=== PATIENT | male | born 1955 | race Caucasian/White ===

== ENCOUNTER 2020-09-25 12:13 | Inpatient (IN) | payer MEDICARE ==
[~2020-09-25] VITALS: Ht 177.8 cm; Wt 92.1 kg
[2020-09-25] MEDS ORDERED: IV NORMAL SALINE 1000ML BAG 1,000 ML IV SCH (13:45)
[2020-09-25 13:59] LABS: BASO % 0 % (0-3); EOS % 0 % (0-3); HEMATOCRIT 35.3 % (39.0-53.0); HEMOGLOBIN 11.7 g/dL (13.0-17.5); LYMPH # 0.6 x10^3/uL (1.0-4.8); LYMPH % 4 % (24-48); MEAN CORPUSCULAR HEMOGLOBIN 28 pg (25-35); MEAN CORPUSCULAR HGB CONC 33 g/dL (31-37); MEAN CORPUSCULAR VOLUME 84 fL (79-100); MONO # 1.5 x10^3/uL (0.0-1.1); MONO % 11 % (0-9); NEUT % 85 % (31-73); PLATELET COUNT 200 x10^3/uL (140-400); RED BLOOD COUNT 4.21 x10^6/uL (4.30-5.70); RED CELL DISTRIBUTION WIDTH 14.5 % (11.5-14.5); WHITE BLOOD COUNT 14.1 x10^3/uL (4.0-11.0)
[2020-09-25 14:15] LABS: CALCIUM 8.4 mg/dL (8.5-10.1); CREATININE 1.4 mg/dL (0.7-1.3); GFR 50.5; POTASSIUM 4.4 mmol/L (3.5-5.1)
[2020-09-25 14:25] LABS: ALBUMIN/GLOBULIN RATIO 0.9 (1.0-1.7); TOTAL BILIRUBIN 0.4 mg/dL (0.2-1.0); TOTAL PROTEIN 6.2 g/dL (6.4-8.2)
[2020-09-25] MEDS ORDERED: CONTRAST GIVEN. MC PRN (14:30)
[2020-09-25] MEDS ORDERED: IOHEXOL 300 MG/ML 100ML VIAL. IV ONE (14:30)
--- NOTE | 2020-09-25 14:30 | PHYS DOC ---
General Adult EDM: Chief Complaint: URINARY RETENTION HPI: HPI: Patient is a 65 year old male who presents with states for the last week he has had this boil on his right buttock that busted open and started leaking last night. He states that his stomach feels like " knots" but is not in pain and it feels distended or pressure. He states that he also has some nausea last night he is unable to urinate. He states he had a small amount of urine out this morning. Patient states he has not been here for many years. Patient denies fever, back pain, vomiting, diarrhea, constipation, chest pain, shortness of breath, cough, blood in his urine, blood in his stool, headache, dizziness, numbness or tingling, focal weakness, body aches, chills. Patient has a history of pacemaker of which she has a grease buffer at , high cholesterol, high blood pressure, diabetes, hypokalemia. He states he is not scheduled to see his primary care Dr. Guadarrama until October but he called the office today and they stated to come into the emergency room. Patient is educated that we do not have urology here at this hospital. Patient rates his abdominal pressure type nonradiating discomfort at a 9 out of 10. (DAX SHUKLA SCREEN PRINTING PASTER) Review of Systems: Review of Systems: Constitutional: Denies fever or chills. [] Eyes: Denies change in visual acuity. [] HENT: Denies nasal congestion or sore throat. [] Respiratory: Denies cough or shortness of breath. [] Cardiovascular: Denies chest pain or edema. [] GI: + abdominal discomfort, +nausea, denies vomiting, bloody stools or diarrhea. [] : Denies dysuria. + Urinary retention [] Musculoskeletal: Denies back pain or joint pain. [] Integument: Denies rash. + Buttock abscess [] Neurologic: Denies headache, focal weakness or sensory changes. [] Endocrine: Denies polyuria or polydipsia. [] Lymphatic: Denies swollen glands. [] Psychiatric: Denies depression or anxiety. [] (DAX SHUKLA APRN) Heart Score: Risk Factors: Risk Factors: DM, Current or recent (<one month) smoker, HTN, HLP, family history of CAD, obesity. Risk Scores: Score 0 - 3: 2.5% MACE over next 6 weeks - Discharge Home Score 4 - 6: 20.3% MACE over next 6 weeks - Admit for Clinical Observation Score 7 - 10: 72.7% MACE over next 6 weeks - Early Invasive Strategies (DAX SHUKLA APRN) Current Medications: Current Medications Medications (Trade) Dose Ordered Sig/Mendez Start Time Stop Time Status Last Admin Dose Admin Sodium Chloride 1,000 ml @ 1,000 mls/hr Q1H 09/25/20 13:45 09/25/20 14:44 09/25/20 14:18 1,000 MLS/HR (DAX SHUKLA SCREEN PRINTING PASTER) Allergies: Allergies: Allergies Coded Allergies Type Severity Reaction Last Updated Verified No Known Drug Allergies 09/25/20 No (DAX SHUKLA APRN) Physical Exam: PE: Constitutional: Well developed, well nourished, no acute distress, non-toxic appearance. [] HENT: Normocephalic, atraumatic, bilateral external ears normal, oropharynx moist, no oral exudates, nose normal. [] Eyes: PERRLA, EOMI, conjunctiva normal, no discharge. [] Neck: Normal range of motion, no tenderness, supple, no stridor. [] Cardiovascular:Heart rate regular rhythm, no murmur [] Lungs & Thorax: Bilateral breath sounds clear to auscultation [] Abdomen: Bowel sounds normal, soft, distended, no tenderness, no masses, no pulsatile masses. [] Skin: Warm, dry, no erythema, no rash. Right buttock abscess [] Back: No tenderness, no CVA tenderness. [] Extremities: No tenderness, no cyanosis, no clubbing, ROM intact, no edema. [] Neurologic: Alert and oriented X 3, normal motor function, normal sensory function, no focal deficits noted. [] Psychologic: Affect normal, judgement normal, mood normal. [] (DAX SHUKLA APRN) Current Patient Data: Labs: Laboratory Tests Test 09/25/20 13:42 White Blood Count 14.1 x10^3/uL (4.0-11.0) H Red Blood Count 4.21 x10^6/uL (4.30-5.70) L Hemoglobin 11.7 g/dL (13.0-17.5) L Hematocrit 35.3 % (39.0-53.0) L Mean Corpuscular Volume 84 fL (79-100) Mean Corpuscular Hemoglobin 28 pg (25-35) Mean Corpuscular Hemoglobin Concent 33 g/dL (31-37) Red Cell Distribution Width 14.5 % (11.5-14.5) Platelet Count 200 x10^3/uL (140-400) Neutrophils (%) (Auto) 85 % (31-73) H Lymphocytes (%) (Auto) 4 % (24-48) L Monocytes (%) (Auto) 11 % (0-9) H Eosinophils (%) (Auto) 0 % (0-3) Basophils (%) (Auto) 0 % (0-3) Neutrophils # (Auto) 12.0 x10^3/uL (1.8-7.7) H Lymphocytes # (Auto) 0.6 x10^3/uL (1.0-4.8) L Monocytes # (Auto) 1.5 x10^3/uL (0.0-1.1) H Eosinophils # (Auto) 0.0 x10^3/uL (0.0-0.7) Basophils # (Auto) 0.0 x10^3/uL (0.0-0.2) Platelet Estimate Pending Sodium Level 136 mmol/L (136-145) Potassium Level 4.4 mmol/L (3.5-5.1) Chloride Level 102 mmol/L (98-107) Carbon Dioxide Level 21 mmol/L (21-32) Anion Gap 13 (6-14) Blood Urea Nitrogen 27 mg/dL (8-26) H Creatinine 1.4 mg/dL (0.7-1.3) H Estimated GFR (Cockcroft-Gault) 50.5 BUN/Creatinine Ratio 19 (6-20) Glucose Level 260 mg/dL (70-99) H Lactic Acid Level 1.2 mmol/L (0.4-2.0) Calcium Level 8.4 mg/dL (8.5-10.1) L Total Bilirubin Pending Aspartate Amino Transferase (AST) Pending Alanine Aminotransferase (ALT) Pending Alkaline Phosphatase Pending Troponin I Quantitative < 0.017 ng/mL (0.000-0.055) Total Protein Pending Albumin Pending Albumin/Globulin Ratio Pending Laboratory Tests 09/25/20 13:42 Laboratory Tests 09/25/20 13:42 Vital Signs: Vital Signs Date Time Temp Pulse Resp B/P (MAP) Pulse Ox O2 Delivery O2 Flow Rate FiO2 09/25/20 13:16 98.3 89 22 94 98.3 (DAX SHUKLA APRN) EKG: EK read by Dr. Torres sinus rhythm and a right bundle branch block and no STEMI (DAX SHUKLA APRN) Radiology/Procedures: Radiology/Procedures: [] Impression: [facility] [address] [place] [address] IMAGING REPORT Signed PATIENT: RADHA CRAFT ACCOUNT: [id number] : 1955 LOCATION: ER AGE: 65 SEX: M EXAM STATUS: REG ER ORD. PHYSICIAN: DAX SHUKLA APRN REASON: urinary retention, nausea, abd pain PROCEDURE: CT ABD PELV W/ IV CONTRST ONLY EXAM: CT Abdomen and Pelvis with IV contrast INDICATION: Reason: urinary retention, nausea, abd pain / Spl. Instructions: OMNI 300 INJ. 60 MLS / History: TECHNIQUE: Multi-detector row CT images were acquired from the lung bases through the abdomen and pelvis with the use of IV contrast. Sagittal and coronal images were acquired from the transaxial data. All CT scans performed at this facility utilize dose optimization techniques as appropriate to the exam, including the following: Automated exposure control and adjustment of the mA and/or KV according to patient size (this includes techniques or standardized protocols for targeted exams where dose is indication/reason for exam). IV CONTRAST: Administered ORAL CONTRAST: Not administered COMPARISON: None FINDINGS: LOWER CHEST: Mild cardiomegaly. Subendomyocardial calcifications in the dilated left ventricle are indicative of old myocardial infarction with possible dilated cardiomyopathy. Axial image AICD leads. Borderline thickened distal thoracic esophageal wall. Small epiphrenic diverticulum. LIVER: Unremarkable BILIARY SYSTEM: Gallbladder is unremarkable. Bile ducts are not dilated. PANCREAS: Unremarkable SPLEEN: Unremarkable ADRENALS: There is nodular diffuse low density fullness of the left adrenal gland, primarily involving the lateral limb. The right adrenal is unremarkable. KIDNEYS & URETERS: Mild bilateral pelviectasis. No overt hydronephrosis. No radiopaque stones. BLADDER: Moderately distended. Otherwise unremarkable. REPRODUCTIVE ORGANS: Prostate measures 6.3 x 5.4 x 7.0 cm (transverse by AP by craniocaudal) GASTROINTESTINAL: Scattered colonic diverticuli. No evidence of acute diverticulitis. The stomach, small bowel, and colon are unremarkable. The appendix is normal. MESENTERY/PERITONEUM/RETROPERITONEUM: Unremarkable VASCULAR: Scattered arterial calcifications. No abdominal aortic aneurysm. LYMPH NODES: No adenopathy OSSEOUS & SOFT TISSUES: There is asymmetric left soft tissue stranding in the left gluteal subcutaneous fat. Small fat-containing umbilical hernia. IMPRESSION: 1. Urinary retention could be related to prostatomegaly. The bladder is only mildly distended. Correlate clinically and consider catheterization as clinically warranted. 2. Patient has asymmetric left perianal and subcutaneous soft tissue stranding, suspicious for acute inflammation. Correlate with clinical exam 3. Colonic diverticulosis without evidence of diverticulitis. No acute findings in the bowel on CT.. Electronically signed by: Michel Garcia MD (09/25/2020 3:36 PM) [id number] DICTATED and SIGNED BY: MICHEL GARCIA MD DATE: 09/25/20 [id number] (DAX SHUKLA APRN) Course & Med Decision Making: Course & Med Decision Making Pertinent Labs and Imaging studies reviewed. (See chart for details) See HPI. Abdomen is soft but rounded and nontender. Speaks in full clear sentences. Alert and oriented x4. Ambulatory with a steady gait. Skin pink warm and dry. Patient was unable to urinate for us when he got back into the emergency room. He was bladder scanned and had to 292 mL on his bladder. Patient is told that he needs a urinary catheter to deflate his bladder and it would help with his discomfort. Patient states he wants to hold off on that as long as possible because it is painful. Patient is educated that we need a urine specimen and it is protocol that we drained his bladder. Patient states his understanding. Patient lab work shows a BUN of 27 creatinine 1.4. States he does not know of any kidney problems. I do not have lab work to look back on from prior visit. Patient is started on antibiotics. Patient has been able to urinate a large amount without the catheterization. He is admitted to Dr. Santana. [] (DAX SHUKLA APRN) Kali Disclaimer: Kali Disclaimer: This electronic medical record was generated, in whole or in part, using a voice recognition dictation system. (DAX SHUKLA APRN) Departure Departure Impression: Primary Impression: Abscess and cellulitis of gluteal region Additional Impression: Urinary retention Disposition: ADMITTED INPT THIS HOSP Admitting Physician: MELISSA (DAX SHUKLA APRN) Condition: STABLE Referrals: MAX GUADARRAMA MD (PCP) Attending Signature Attending Signature I have reviewed the PA/CATALYTIC CASE OPERATOR's note and plan of care. I was available for consultation as needed during the patient's visit in the emergency department. I agree with the clinical impression, plan, and disposition. (PHILLIP TORRES DO) DAX SHUKLA APRN Sep 25, 2020 14:30 PHILLIP TORRES DO Sep 26, 2020 18:53
[2020-09-25 14:39] LABS: BILIRUBIN,URINE NEGATIVE (NEG); CLARITY,URINE CLEAR; COLOR,URINE YELLOW; NITRITE,URINE NEGATIVE (NEG); PH,URINE 5.5 (<5.0-8.0); PROTEIN,URINE NEGATIVE (NEG-TRACE)
[2020-09-25 14:47] LABS: BACTERIA,URINE 0 /HPF (0-FEW); HYALINE CASTS, URINE OCCASIONAL /HPF; RBC,URINE 0 /HPF (0-2); WBC,URINE 0 /HPF (0-4)
[2020-09-25] MEDS ORDERED: VANCOMYCIN PER PHARMACY MC PRN (15:00)
[2020-09-25 15:03] LABS: % BANDS 7 % (0-9); % LYMPHS 5 % (24-48); % MONOS 13 % (0-10); % SEGS 75 % (35-66); PLT ESTIMATE ADEQUATE (ADEQUATE)
--- NOTE | 2020-09-25 15:39 | RAD ---
EXAM: CT Abdomen and Pelvis with IV contrast INDICATION: Reason: urinary retention, nausea, abd pain / Spl. Instructions: OMNI 300 INJ. 60 MLS / H istory: TECHNIQUE: Multi-detector row CT images were acquired from the lung bases through the abdomen and pel vis with the use of IV contrast. Sagittal and coronal images were acquired from the transaxial data. All CT scans performed at this facility utilize dose optimization techniques as appropriate to the ex am, including the following: Automated exposure control and adjustment of the mA and/or KV according to patient size (this includes techniques or standardized protocols for targeted exams where dose is indication/reason for exam). IV CONTRAST: Administered ORAL CONTRAST: Not administered COMPARISON: None FINDINGS: LOWER CHEST: Mild cardiomegaly. Subendomyocardial calcifications in the dilated left ventricle are in dicative of old myocardial infarction with possible dilated cardiomyopathy. Axial image AICD leads. B orderline thickened distal thoracic esophageal wall. Small epiphrenic diverticulum. LIVER: Unremarkable BILIARY SYSTEM: Gallbladder is unremarkable. Bile ducts are not dilated. PANCREAS: Unremarkable SPLEEN: Unremarkable ADRENALS: There is nodular diffuse low density fullness of the left adrenal gland, primarily involvi ng the lateral limb. The right adrenal is unremarkable. KIDNEYS & URETERS: Mild bilateral pelviectasis. No overt hydronephrosis. No radiopaque stones. BLADDER: Moderately distended. Otherwise unremarkable. REPRODUCTIVE ORGANS: Prostate measures 6.3 x 5.4 x 7.0 cm (transverse by AP by craniocaudal) GASTROINTESTINAL: Scattered colonic diverticuli. No evidence of acute diverticulitis. The stomach, sm all bowel, and colon are unremarkable. The appendix is normal. MESENTERY/PERITONEUM/RETROPERITONEUM: Unremarkable VASCULAR: Scattered arterial calcifications. No abdominal aortic aneurysm. LYMPH NODES: No adenopathy OSSEOUS & SOFT TISSUES: There is asymmetric left soft tissue stranding in the left gluteal subcutane ous fat. Small fat-containing umbilical hernia. IMPRESSION: 1. Urinary retention could be related to prostatomegaly. The bladder is only mildly distended. Correl ate clinically and consider catheterization as clinically warranted. 2. Patient has asymmetric left perianal and subcutaneous soft tissue stranding, suspicious for acute inflammation. Correlate with clinical exam 3. Colonic diverticulosis without evidence of diverticulitis. No acute findings in the bowel on CT.. Electronically signed by: Akash Garcia MD (09/25/2020 3:36 PM) [id number]
[2020-09-25] MEDS ORDERED: VANCOMYCIN 1.5 GM in IV NORMAL SALINE 500ML BAG 500 ML IV ONE (17:30)
[2020-09-25 18:36] VITALS: BP 143/64
[2020-09-25 19:25] VITALS: BP 139/63
--- NOTE | 2020-09-25 19:52 | NUR ---
Pharmacy Vancomycin Dosing Note S:Consulted to monitor and dose vancomycin started 09/25/20. O:RADHA CRAFT is a 65 year old M with Abscess Cellulitis . Height: 5 feet, 10 inches Weight: 88.1 kg [place] Body Weight: 73.00 Adjusted Body Weight: 79.04 Dosing Weight: Actual Other Antibiotics: LABS: Last BUN: 27 Last Creatinine: 1.4 Creatinine Clearance: 57 mL/min Last WBC: 14.1 Last Procalcitonin: Tmax (past 24 hours): Microbiology: I/O: Drug Levels: Last level: on at Last dose given at Vancomycin Dosing: Loading Dose: 1500 mg x1 Dosing Weight: Actual Target Trough: 10-20 A: Based on: HT, WT AND RENAL FXN P: 1. Begin Vancomycin 1250 mg IV q18h 2. Follow up Trough level on 09/27/20 at 0630 3. Pharmacy will continue to monitor, follow and adjust therapy as needed. DARRIN WRIGHT, [facility], 09/25/20 195
--- NOTE | 2020-09-25 20:11 | HP ---
ADMIT DATE: 09/25/2020 CHIEF COMPLAINT: Urinary retention. HISTORY OF PRESENT ILLNESS: The patient is a pleasant 65-year-old male who presented today because he was having problems with urinary retention, also had a boil on his right buttock. The boil actually leaked some fluid last night, seems to have opened up. He also has some "knots" in his stomach and feels distended. While in the ER, they did a straight catheterization. He has got 300 mL out. He also has a known history of BPH. I discussed the case with ER physician. We are going to admit the patient and treat his buttock abscess with surrounding cellulitis and we will probably admit him for a Tomlinson in, although I spoke with his nurse and he would like to try to urinate on his own for a few more hours, but I suspect he is going to need a Tomlinson. The patient rates his pain at 7/10 and describes as pressure-like in sensation. PAST MEDICAL HISTORY: BPH. ALLERGIES: None. FAMILY HISTORY: Diabetes. SOCIAL HISTORY: Does not drink, smoke or take drugs. MEDICATIONS: Reviewed, please refer to the MRAD. REVIEW OF SYSTEMS: GENERAL: No history of weight change, weakness or fevers. SKIN: No bruising, hair changes or rashes. EYES: No blurred, double or loss of vision. NOSE AND THROAT: No history of nosebleeds, hoarseness or sore throat. HEART: No history of palpitations, chest pain or shortness of breath on exertion. LUNGS: Denies cough, hemoptysis, wheezing or shortness of breath. GASTROINTESTINAL: Denies changes in appetite, nausea, vomiting, diarrhea or constipation. GENITOURINARY: He complains of some urinary pain and urgency at times, but it is intermittent. He complains of buttock pain with an abscess and surrounding cellulitis that has been draining. NEUROLOGIC: Denies history of numbness, tingling, tremor or weakness. PSYCHIATRIC: No history of panic, anxiety or depression. ENDOCRINE: No history of heat or cold intolerance, polyuria or polydipsia. EXTREMITIES: Denies muscle weakness, joint pain, pain on walking or stiffness. PHYSICAL EXAMINATION: VITALS: Within normal limits and are stable. GENERAL: No apparent distress. Alert and oriented. HEENT: Normal cephalic atraumatic, external auditory canals are patent EYES: Extraocular muscles are intact, pupils are equally round and reactive to light and accommodation MUSCULOSKELETAL: Well developed, well nourished, good range of motion ENDOCRINE: No thyromegaly was palpated LYMPHATICS: No cervical chain or axillary nodes were noted HEMATOPOIETIC: No bruising NECK: Supple, no JVD, no thyromegaly was noted. LUNGS: Clear to auscultation in all lung hoyos without rhonchi or wheezing. HEART: RRR, S1, S2 present. Peripheral pulses intact, no obvious murmurs were noted. ABDOMEN: Soft, nontender. Positive bowel sounds no organomegaly, normal bowel sounds. EXTREMITIES: Without any cyanosis, clubbing, or edema. Pedal pulses intact, Homans sign is negative. NEUROLOGIC: Normal speech, normal tone. A & O x3, moves all extremities, no obvious focal deficits. PSYCHIATRIC: Normal affect, normal mood. Stable. SKIN: No ulcerations or rashes, good skin turgor, no jaundice. VASCULAR: Good capillary refill, neurovascular bundle appears to be intact LABORATORY DATA: White count 14, hemoglobin 11, platelets 200. Electrolytes are normal other than a BUN of 27 and creatinine 1.4. Urinalysis is negative. IMAGING: CT of the abdomen shows urinary retention with prostatomegaly and asymmetrical left perianal and subcutaneous soft tissue stranding suspicious for inflammation, diverticulosis. IMPRESSION AND PLAN: Benign prostatic hypertrophy, perirectal abscess, cellulitis, renal failure, azotemia. The patient has been admitted. We have already straight catheterized him. We are going to probably have to place a Tomlinson, but he wants to wait and see if he can urinate better. I discussed this with the nurse IV fluids, IV antibiotics, home meds, DVT prophylaxis. Full code. Consult Infectious Disease. CLARITA TORRES DO DR: STEF/kavon JOB#: [id number] / [id number]
[2020-09-25] MEDS ORDERED: ASPI-886 PO (20:28)
[2020-09-25] MEDS ORDERED: MEXI200C PO (20:28)
[2020-09-25] MEDS ORDERED: SACU1TAB7 PO (20:28)
[2020-09-25] MEDS ORDERED: ATOR20TA58 PO (20:28)
[2020-09-25] MEDS ORDERED: SPIR25TA5 PO (20:28)
[2020-09-25] MEDS ORDERED: GLIP5TAB10 PO (20:28)
[2020-09-25] MEDS ORDERED: METF10007 PO (20:28)
[2020-09-25] MEDS ORDERED: FURO40TA4 PO (20:28)
[2020-09-25] MEDS ORDERED: CLOP75TA PO (20:28)
[2020-09-25] MEDS ORDERED: POTA20TA4 PO (20:28)
[2020-09-25] MEDS ORDERED: ACETAMINOPHEN 325 MG TABLET. PO PRN (20:45)
[2020-09-25] MEDS: MEXILETINE HCL 200 MG CAPSULE PO SCH (20:57)
[2020-09-25] MEDS: SACUBITRIL/VALSARTAN 49/51MG TABLET. PO SCH (20:57)
[2020-09-25] MEDS: ATORVASTATIN CALCIUM 20 MG TABLET PO SCH (20:57)
--- NOTE | 2020-09-25 22:53 | NUR ---
sepsis screened triggered positive, SEAT NAILER Ngoc contacted and recommend calling ID doc for futher order. , Dr galvez pager paged.
[2020-09-25 23:11] VITALS: BP 93/47
[2020-09-26 02:49] VITALS: BP 116/41
[2020-09-26 07:00] VITALS: BP 94/35
[2020-09-26] MEDS ORDERED: metFORMIN XR 500 MG TAB.ER.24H PO SCH (08:00)
[2020-09-26] MEDS: SACUBITRIL/VALSARTAN 49/51MG TABLET. PO SCH (08:46)
[2020-09-26 09:00] LABS: BASO # 0.1 x10^3/uL (0.0-0.2); BASO % 1 % (0-3); EOS # 0.1 x10^3/uL (0.0-0.7); EOS % 1 % (0-3); HEMATOCRIT 34.3 % (39.0-53.0); HEMOGLOBIN 11.3 g/dL (13.0-17.5); LYMPH % 8 % (24-48); MEAN CORPUSCULAR HEMOGLOBIN 28 pg (25-35); MEAN CORPUSCULAR HGB CONC 33 g/dL (31-37); MEAN CORPUSCULAR VOLUME 84 fL (79-100); MONO # 1.5 x10^3/uL (0.0-1.1); MONO % 12 % (0-9); NEUT # 10.4 x10^3/uL (1.8-7.7); NEUT % 80 % (31-73); PLATELET COUNT 215 x10^3/uL (140-400); RED CELL DISTRIBUTION WIDTH 14.5 % (11.5-14.5)
[2020-09-26] MEDS ORDERED: FUROSEMIDE 40 MG TABLET. PO SCH (09:00)
[2020-09-26] MEDS ORDERED: SPIRONOLACTONE 25 MG TABLET PO SCH (09:00)
[2020-09-26] MEDS ORDERED: CLOPIDOGREL BISULFATE 75 MG TABLET PO SCH (09:00)
[2020-09-26] MEDS ORDERED: glipiZIDE 5 MG TABLET PO SCH (09:00)
[2020-09-26] MEDS ORDERED: POTASSIUM CHLORIDE 20 MEQ TABLET.ER. PO SCH (09:00)
[2020-09-26 09:08] LABS: CALCIUM 7.8 mg/dL (8.5-10.1); CREATININE 1.4 mg/dL (0.7-1.3); GFR 50.5; MAGNESIUM 1.9 mg/dL (1.8-2.4); POTASSIUM 4.1 mmol/L (3.5-5.1)
[2020-09-26] MEDS ORDERED: DEXTROSE 50% 25 GM / 50ML DISP.SYRIN. IV PRN (09:30)
[2020-09-26] MEDS: ASPIRIN ENTERIC COATED 81 MG TABLET.DR. PO SCH (09:34)
[2020-09-26] MEDS: MEXILETINE HCL 200 MG CAPSULE PO SCH ×3 (09:35→21:52)
--- NOTE | 2020-09-26 10:39 | CONS ---
DATE OF CONSULTATION: 09/26/2020 REFERRING PHYSICIAN: Dr. Santana. REASON FOR CONSULTATION: Left buttock cellulitis, possible abscess. HISTORY OF PRESENT ILLNESS: A 65-year-old male who presented to the ER on 09/25/2020 with complaints of boil over the left buttock which busted open and started leaking night before admission, he started feeling a knot in that area a couple of days ago, but it started getting bigger. He had a previous episode of similar knot and thought that it would get better on its own. He also had some nausea. He was unable to urinate. He was found to have fevers, leukocytosis, MARVEL with creatinine of 1.4, glucose of 260. UA was negative. CT abdomen and pelvis as below. The patient is currently on vancomycin. ID consultation is requested for antibiotic management. Today, the patient feels a little better. He had fever last night, but afebrile this morning. Denies any fevers, chills, nausea, vomiting, diarrhea, abdominal pain, symptoms. PAST MEDICAL HISTORY: Diabetes, BPH. ALLERGIES: None. FAMILY HISTORY: As per HPI. SOCIAL HISTORY: Denies smoking, ETOH, or illicit drug use. CURRENT MEDICATION: IV vancomycin. Other medications reviewed in medication list. REVIEW OF SYSTEMS: Negative except for above in HPI. PHYSICAL EXAMINATION: VITAL SIGNS: Temperature 98, T-max 101, pulse 85, respiratory rate 18, blood pressure 94/35, oxygen saturation 94% on room air. GENERAL: Alert, oriented x 3 male lying in bed comfortably, in no acute distress. HEENT: Normocephalic, atraumatic, anicteric. NECK: Supple, no JVD. LUNGS: Clear bilaterally. HEART: S1, S2. No gallops or murmurs. ABDOMEN: Soft, nontender, nondistended. Bowel sounds present. EXTREMITIES: No edema, no cyanosis. Left buttock has subcutaneous swelling, redness, tenderness, induration. NEUROLOGIC: Alert and oriented x 3, grossly nonfocal. PSYCHIATRIC: Cooperative, appropriate mood and affect. LABORATORY DATA: WBC 13.0, was 14.1, hemoglobin 11.3, hematocrit 34.3, platelets 215. Sodium 136, potassium 4.4, chloride 102, bicarbonate 21, BUN 27, creatinine 1.4, glucose 260. AST, ALT and alkaline phosphatase within normal limits. Albumin 3.0. Lactate 1.2. UA negative. IMAGING: CT abdomen and pelvis shows minimal distention, could be related to prostatomegaly. The bladder is mildly distended. The patient with asymmetric left perianal and subcutaneous soft tissue stranding suspicious for acute inflammation correlate with clinical exam: Colonic diverticulosis without evidence of diverticulitis. No acute findings on CT. IMPRESSION: 1. Left buttock cellulitis/abscess 2. Leukocytosis. 3. Fever. 4. Urinary retention from benign prostatic hypertrophy. 5. Diabetes mellitus, poorly controlled. 6. Acute kidney injury. RECOMMENDATIONS: 1. Discontinue IV vancomycin due to MARVEL. 2. Start Zyvox. 3. Start Zosyn. 4. Follow up labs and cultures. 5. Continue supportive care. 6. General Surgery consulted 8. Continue local care. Discussed with RN. Thank you for allowing me to participate in this patient's care. If you have any questions, do not hesitate to contact me. YURI LUGO MD DR: ROSELINE/kavon JOB#: [id number] / [id number] ELIUD
--- NOTE | 2020-09-26 10:48 | PDOC ---
[employer] PROGRESS NOTE Date of Service DOS: DATE: 09/26/20 TIME: 10:35 Chief Complaint Chief Complaint Sepsis Acute left buttock abscess Hyponatremia MARVEL due to vasomotornephropathy DM uncontrolled ID consult for empiric IV Abx Surgery consult for abscess Continue IVF for DVT prophylaxis [] GI prophylaxis ADA diet Full code Discussed with RN and SW Disposition [] Surrogate decision maker is the [] History of Present Illness History of Present Illness 09/26/20 No acute events overnight. fevers of Tmax of 101.0. Pain is controlled. IV Abx. Patient's chart, labs, images were reviewed and discussed with RN 65-year-old male who presented today because he was having problems with urinary retention, also had a boil on his right buttock. The boil actually leaked some fluid last night, seems to have opened up. He also has some "knots" in his stomach and feels distended. While in the ER, they did a straight catheterization. He has got 300 mL out. He also has a known history of BPH. I discussed the case with ER physician. We are going to admit the patient and treat his buttock abscess with surrounding cellulitis and we will probably admit him for a Tomlinson in, although I spoke with his nurse and he would like to try to urinate on his own for a few more hours, but I suspect he is going to need a Tomlinson. The patient rates his pain at 7/10 and describes as pressure-like in sensation. Vitals/I&O Vitals/I&O: Vital Signs Date Time Temp Pulse Resp B/P (MAP) Pulse Ox O2 Delivery O2 Flow Rate FiO2 09/26/20 07:00 98.0 85 18 94/35 (54) 94 Room Air 98.0 I & O 09/25/20 09/25/20 09/26/20 15:00 23:00 07:00 Intake Total 240 ml Output Total 250 ml 300 ml Balance -250 ml -60 ml Labs Labs: Laboratory Tests Test 09/25/20 13:42 09/25/20 14:21 09/25/20 19:14 09/26/20 07:43 White Blood Count 14.1 x10^3/uL (4.0-11.0) Red Blood Count 4.21 x10^6/uL (4.30-5.70) Hemoglobin 11.7 g/dL (13.0-17.5) Hematocrit 35.3 % (39.0-53.0) Mean Corpuscular Volume 84 fL (79-100) Mean Corpuscular Hemoglobin 28 pg (25-35) Mean Corpuscular Hemoglobin Concent 33 g/dL (31-37) Red Cell Distribution Width 14.5 % (11.5-14.5) Platelet Count 200 x10^3/uL (140-400) Neutrophils (%) (Auto) 85 % (31-73) Lymphocytes (%) (Auto) 4 % (24-48) Monocytes (%) (Auto) 11 % (0-9) Eosinophils (%) (Auto) 0 % (0-3) Basophils (%) (Auto) 0 % (0-3) Neutrophils # (Auto) 12.0 x10^3/uL (1.8-7.7) Lymphocytes # (Auto) 0.6 x10^3/uL (1.0-4.8) Monocytes # (Auto) 1.5 x10^3/uL (0.0-1.1) Eosinophils # (Auto) 0.0 x10^3/uL (0.0-0.7) Basophils # (Auto) 0.0 x10^3/uL (0.0-0.2) Segmented Neutrophils % 75 % (35-66) Band Neutrophils % 7 % (0-9) Lymphocytes % 5 % (24-48) Monocytes % 13 % (0-10) Platelet Estimate Adequate (ADEQUATE) Sodium Level 136 mmol/L (136-145) Potassium Level 4.4 mmol/L (3.5-5.1) Chloride Level 102 mmol/L (98-107) Carbon Dioxide Level 21 mmol/L (21-32) Anion Gap 13 (6-14) Blood Urea Nitrogen 27 mg/dL (8-26) Creatinine 1.4 mg/dL (0.7-1.3) Estimated GFR (Cockcroft-Gault) 50.5 BUN/Creatinine Ratio 19 (6-20) Glucose Level 260 mg/dL (70-99) Lactic Acid Level 1.2 mmol/L (0.4-2.0) Calcium Level 8.4 mg/dL (8.5-10.1) Total Bilirubin 0.4 mg/dL (0.2-1.0) Aspartate Amino Transf (AST/SGOT) 10 U/L (15-37) Alanine Aminotransferase (ALT/SGPT) 20 U/L (16-63) Alkaline Phosphatase 53 U/L (46-116) Troponin I Quantitative < 0.017 ng/mL (0.000-0.055) Total Protein 6.2 g/dL (6.4-8.2) Albumin 3.0 g/dL (3.4-5.0) Albumin/Globulin Ratio 0.9 (1.0-1.7) Urine Collection Type Unknown Urine Color Yellow Urine Clarity Clear Urine pH 5.5 (<5.0-8.0) Urine Specific [place] 1.025 (1.000-1.030) Urine Protein Negative mg/dL (NEG-TRACE) Urine Glucose (UA) 500 mg/dL (NEG) Urine Ketones (Stick) Trace mg/dL (NEG) Urine Blood Negative (NEG) Urine Nitrite Negative (NEG) Urine Bilirubin Negative (NEG) Urine Urobilinogen Dipstick 1.0 mg/dL (0.2 mg/dL) Urine Leukocyte Esterase Negative (NEG) Urine RBC 0 /HPF (0-2) Urine WBC 0 /HPF (0-4) Urine Bacteria 0 /HPF (0-FEW) Urine Hyaline Casts Occasional /HPF Urine Mucus Mod /LPF Glucose (Fingerstick) 180 mg/dL (70-99) 203 mg/dL (70-99) Test 09/26/20 08:35 White Blood Count 13.0 x10^3/uL (4.0-11.0) Red Blood Count 4.10 x10^6/uL (4.30-5.70) Hemoglobin 11.3 g/dL (13.0-17.5) Hematocrit 34.3 % (39.0-53.0) Mean Corpuscular Volume 84 fL (79-100) Mean Corpuscular Hemoglobin 28 pg (25-35) Mean Corpuscular Hemoglobin Concent 33 g/dL (31-37) Red Cell Distribution Width 14.5 % (11.5-14.5) Platelet Count 215 x10^3/uL (140-400) Neutrophils (%) (Auto) 80 % (31-73) Lymphocytes (%) (Auto) 8 % (24-48) Monocytes (%) (Auto) 12 % (0-9) Eosinophils (%) (Auto) 1 % (0-3) Basophils (%) (Auto) 1 % (0-3) Neutrophils # (Auto) 10.4 x10^3/uL (1.8-7.7) Lymphocytes # (Auto) 1.0 x10^3/uL (1.0-4.8) Monocytes # (Auto) 1.5 x10^3/uL (0.0-1.1) Eosinophils # (Auto) 0.1 x10^3/uL (0.0-0.7) Basophils # (Auto) 0.1 x10^3/uL (0.0-0.2) Sodium Level 135 mmol/L (136-145) Potassium Level 4.1 mmol/L (3.5-5.1) Chloride Level 102 mmol/L (98-107) Carbon Dioxide Level 23 mmol/L (21-32) Anion Gap 10 (6-14) Blood Urea Nitrogen 22 mg/dL (8-26) Creatinine 1.4 mg/dL (0.7-1.3) Estimated GFR (Cockcroft-Gault) 50.5 Glucose Level 268 mg/dL (70-99) Calcium Level 7.8 mg/dL (8.5-10.1) Magnesium Level 1.9 mg/dL (1.8-2.4) Assessment and Plan Assessmemt and Plan Problems Medical Problems: (1) Abscess and cellulitis of gluteal region Status: Acute (2) Urinary retention Status: Acute Comment Review of Relevant I have reviewed the following items kavin (where applicable) has been applied. Medications: Current Medications Medications (Trade) Dose Ordered Sig/Mendez Route PRN Reason Start Time Stop Time Status Last Admin Dose Admin Sodium Chloride 1,000 ml @ 1,000 mls/hr Q1H IV 09/25/20 13:45 09/25/20 14:44 DC 09/25/20 14:18 Iohexol (Omnipaque 300 Mg/ml) 60 ml 1X ONCE IV 09/25/20 14:30 09/25/20 14:31 DC 09/25/20 14:50 Vancomycin HCl (Vanco Per Pharmacy) 1 each PRN DAILY PRN MC SEE COMMENTS 09/25/20 15:00 09/26/20 10:13 DC 09/25/20 19:52 Vancomycin HCl 1.5 gm/Sodium Chloride 500 ml @ 250 mls/hr 1X ONCE IV 09/25/20 17:30 09/25/20 19:29 DC 09/25/20 19:14 Aspirin (Ecotrin) 81 mg DAILY PO 09/26/20 09:00 09/26/20 09:34 Mexiletine HCl (Mexitil) 200 mg TID PO 09/25/20 21:00 09/26/20 09:35 Acetaminophen (Tylenol) 650 mg PRN Q6HRS PRN PO MILD PAIN / TEMP > 100.3'F 09/25/20 20:45 09/25/20 21:38 Justifications for Admission Other Justification STEPH BROOKS MD Sep 26, 2020 10:48
[2020-09-26 11:00] VITALS: BP 110/52
[2020-09-26] MEDS: LINEZOLID 600 MG TABLET PO SCH ×2 (11:07→21:52)
[2020-09-26] MEDS: INSULIN LISPRO 300 UNITS/3 ML VIAL. SQ SCH ×2 (11:12→17:50)
[2020-09-26] MEDS: PIPERACILLIN/TAZOBACTAM 3.375 GM in IV NORMAL SALINE 50ML 50 ML IV SCH ×2 (11:19→17:43)
--- NOTE | 2020-09-26 12:48 | PDOC2 ---
CONSULT Date of Consult Date of Consult DATE: 09/26/20 TIME: 12:45 History of Present Illness Reason for Visit: The patient is a 65 year old male who reported with pain and swelling of the left buttock. He states it has worsened over the last week, but he did notice spontaneous drainage 2 days ago. Past Medical History Past Medical History diabetes, CAD with prior MS Past Surgical History Past Surgical History pacemaker/defib placement Social History Quit Current Problem List Problem List Problems Medical Problems: (1) Abscess and cellulitis of gluteal region Status: Acute (2) Urinary retention Status: Acute Current Medications Current Medications Current Medications Sodium Chloride 1,000 ml @ 1,000 mls/hr Q1H IV Last administered on 09/25/20at 14:18; Start 09/25/20 at 13:45; Stop 09/25/20 at 14:44; Status DC Iohexol (Omnipaque 300 Mg/ml) 60 ml 1X ONCE IV Last administered on 09/25/20at 14:50; Start 09/25/20 at 14:30; Stop 09/25/20 at 14:31; Status DC Info (CONTRAST GIVEN -- Rx MONITORING) 1 each PRN DAILY PRN MC SEE COMMENTS; Start 09/25/20 at 14:30; Stop 09/27/20 at 14:29 Vancomycin HCl (Vanco Per Pharmacy) 1 each PRN DAILY PRN MC SEE COMMENTS Last administered on 09/25/20at 19:52; Start 09/25/20 at 15:00; Stop 09/26/20 at 10:13; Status DC Vancomycin HCl 1.5 gm/Sodium Chloride 500 ml @ 250 mls/hr 1X ONCE IV Last administered on 09/25/20at 19:14; Start 09/25/20 at 17:30; Stop 09/25/20 at 19 :29; Status DC Vancomycin HCl 1.25 gm/Sodium Chloride 250 ml @ 167 mls/hr Q18H IV ; Start 09/26/20 at 13:00; Stop 09/26/20 at 10:11; Status DC Vancomycin HCl (Vancomycin Trough Level) 1 each 1X ONCE MC ; Start 09/27/20 at 06:30; Stop 09/27/20 at 06:31; Status Cancel Aspirin (Ecotrin) 81 mg DAILY PO Last administered on 09/26/20at 09:34; Start 09/26/20 at 09:00 Atorvastatin Calcium (Lipitor) 20 mg HS PO ; Start 09/25/20 at 21:00 Clopidogrel Bisulfate (Plavix) 75 mg DAILY PO ; Start 09/26/20 at 09:00; Stop 09/26/20 at 09:33; Status DC Furosemide (Lasix) 40 mg DAILY PO ; Start 09/26/20 at 09:00; Stop 09/26/20 at 09:34; Status DC Glipizide (Glucotrol) 5 mg DAILY PO ; Start 09/26/20 at 09:00; Stop 09/26/20 at 09:34; Status DC Mexiletine HCl (Mexitil) 200 mg TID PO Last administered on 09/26/20at 09:35; Start 09/25/20 at 21:00 Potassium Chloride (Klor-Con) 20 meq DAILY PO ; Start 09/26/20 at 09:00; Stop 09/26/20 at 09:34; Status DC Sacubitril/ Valsartan (Entresto 49 Mg-51 Mg) 1 tab HS PO ; Start 09/25/20 at 21:00 Spironolactone (Aldactone) 25 mg DAILY PO ; Start 09/26/20 at 09:00; Stop 09/26/20 at 09:34; Status DC Metformin HCl (Glucophage Xr) 2,000 mg DAILYWBKFT PO ; Start 09/26/20 at 08:00; Stop 09/26/20 at 09:34; Status DC Acetaminophen (Tylenol) 650 mg PRN Q6HRS PRN PO MILD PAIN / TEMP > 100.3'F Last administered on 09/25/20at 21:38; Start 09/25/20 at 20:45 Insulin Human Lispro (HumaLOG) 0-7 UNITS TIDWMEALS SQ Last administered on 09/26/20at 11:12; Start 09/26/20 at 12:00 Dextrose (Dextrose 50%-Water Syringe) 12.5 gm PRN Q15MIN PRN IV SEE COMMENTS; Start 09/26/20 at 09:30 Piperacillin Sod/ Tazobactam Sod 3.375 gm/Sodium Chloride 50 ml @ 100 mls/hr Q6HRS IV Last administered on 09/26/20at 11:19; Start 09/26/20 at 12:00 Linezolid (Zyvox) 600 mg BID PO Last administered on 09/26/20at 11:07; Start 09/26/20 at 11:00 Active Scripts Active Reported Spironolactone 25 Mg Tablet 1 Tab PO DAILY Klor-Con M20 (Potassium Chloride) 20 Meq Tab.er.prt 1 Tab PO DAILY 30 Days Mexiletine Hcl 200 Mg Capsule 200 Mg PO TID Metformin Hcl 1,000 Mg Tablet 2,000 Mg PO DAILYWBKFT Glipizide 5 Mg Tablet 1 Tab PO DAILY Furosemide 40 Mg Tablet 1 Tab PO DAILY Entresto 49 mg-51 mg Tablet (Sacubitril/Valsartan) 1 Each Tablet 1 Each PO HS Clopidogrel (Clopidogrel Bisulfate) 75 Mg Tablet 1 Tab PO DAILY Atorvastatin Calcium 20 Mg Tablet 20 Mg PO HS PRN Aspirin Ec (Aspirin) 81 Mg Tablet.dr 1 Tab PO DAILY Allergies Allergies: Coded Allergies: No Known Drug Allergies (Unverified , 09/25/20) ROS General: No: Chills, Night Sweats, Fatigue, Malaise, Appetite, Other PSYCHOLOGICAL ROS: No: Anxiety, Behavioral Disorder, Concentration difficultie, Decreased libido, Depression, Disorientation, Hallucinations, Hostility, Irritablity, Memory difficulties, Mood Swings, Obsessive thoughts, Physical abuse, Sexual abuse, Sleep disturbances, Suicidal ideation, Other Eyes: No Blurry vision, No Decreased vision, No Double vision, No Dry eyes, No Excessive tearing, No Eye Pain, No Itchy Eyes, No Loss of vision, No Photophobia, No Scotomata, No Uses contacts, No Uses glasses, No Other HEENT: No: Heacaches, Visual Changes, Hearing change, Nasal congestion, Nasal discharge, Oral lesions, Sinus pain, Sore Throat, Epistaxis, Sneezing, Snoring, Tinnitus, Vertigo, Vocal changes, Other ALLERGY AND IMMUNOLOGY: No: Hives, Insect Bite Sensitivity, Itchy/Watery Eyes, Nasal Congestion, Post Nasal Drip, Seasonal Allergies, Other Hematological and Lymphatic: No: Bleeding Problems, Blood Clots, Blood Transfusions, Brusing, Night Sweats, Pallor, Swollen Lymph Nodes, Other ENDOCRINE: No: Breast Changes, Galactorrhea, Hair Pattern Changes, Hot Flashes, Malaise/lethargy, Mood Swings, Palpitations, Polydipsia/polyuria, Skin Changes, Temperature Intolerance, Unexpected Weight Changes, Other Respiratory: No: Cough, Hemoptysis, Orthopnea, Pleuritic Pain, Shortness of breath, SOB with excertion, Sputum Changes, Stridor, Tachypnea, Wheezing, Other Cardiovascular: No Chest Pain, No Palpitations, No Orthopnea, No Paroxysmal Noc. Dyspnea, No Edema, No Lt Headedness, No Other Gastrointestinal: No Nausea, No Vomiting, No Abdominal Pain, No Diarrhea, No Constipation, No Melena, No Hematochezia, No Other Genitourinary: No Dysuria, No Frequency, No Incontinence, No Hematuria, No R etention, No Discharge, No Urgency, No Pain, No Flank Pain, No Other, No , No , No , No , No , No , No Musculoskeletal: No Gait Disturbance, No Joint Pain, No Joint Stiffness, No Joint Swelling, No Muscle Pain, No Muscular Weakness, No Pain In:, No Swelling In:, No Other Neurological: No Behavorial Changes, No Bowel/Bladder ControlChng, No Confusion, No Dizziness, No Gait Disturbance, No Headaches, No Impaired Coord/balance, No Memory Loss, No Numbness/Tingling, No Seizures, No Speech Problems, No Tremors, No Visual Changes, No Weakness, No Other Physical Exam Physical Exam left perirectal pain, erythema, fluctuance General: Alert, Oriented X3, Cooperative HEENT: Atraumatic Lungs: Clear to auscultation Abdomen: Soft, No tenderness Extremities: No clubbing, No cyanosis Vitals VITALS Vital Signs Date Time Temp Pulse Resp B/P (MAP) Pulse Ox O2 Delivery O2 Flow Rate FiO2 09/26/20 11:00 98.2 82 18 110/52 (71) 90 Room Air 98.2 Labs Labs Laboratory Tests Test 09/25/20 13:42 09/25/20 14:21 09/25/20 19:14 09/26/20 07:43 White Blood Count 14.1 x10^3/uL (4.0-11.0) Red Blood Count 4.21 x10^6/uL (4.30-5.70) Hemoglobin 11.7 g/dL (13.0-17.5) Hematocrit 35.3 % (39.0-53.0) Mean Corpuscular Volume 84 fL (79-100) Mean Corpuscular Hemoglobin 28 pg (25-35) Mean Corpuscular Hemoglobin Concent 33 g/dL (31-37) Red Cell Distribution Width 14.5 % (11.5-14.5) Platelet Count 200 x10^3/uL (140-400) Neutrophils (%) (Auto) 85 % (31-73) Lymphocytes (%) (Auto) 4 % (24-48) Monocytes (%) (Auto) 11 % (0-9) Eosinophils (%) (Auto) 0 % (0-3) Basophils (%) (Auto) 0 % (0-3) Neutrophils # (Auto) 12.0 x10^3/uL (1.8-7.7) Lymphocytes # (Auto) 0.6 x10^3/uL (1.0-4.8) Monocytes # (Auto) 1.5 x10^3/uL (0.0-1.1) Eosinophils # (Auto) 0.0 x10^3/uL (0.0-0.7) Basophils # (Auto) 0.0 x10^3/uL (0.0-0.2) Segmented Neutrophils % 75 % (35-66) Band Neutrophils % 7 % (0-9) Lymphocytes % 5 % (24-48) Monocytes % 13 % (0-10) Platelet Estimate Adequate (ADEQUATE) Sodium Level 136 mmol/L (136-145) Potassium Level 4.4 mmol/L (3.5-5.1) Chloride Level 102 mmol/L (98-107) Carbon Dioxide Level 21 mmol/L (21-32) Anion Gap 13 (6-14) Blood Urea Nitrogen 27 mg/dL (8-26) Creatinine 1.4 mg/dL (0.7-1.3) Estimated GFR (Cockcroft-Gault) 50.5 BUN/Creatinine Ratio 19 (6-20) Glucose Level 260 mg/dL (70-99) Lactic Acid Level 1.2 mmol/L (0.4-2.0) Calcium Level 8.4 mg/dL (8.5-10.1) Total Bilirubin 0.4 mg/dL (0.2-1.0) Aspartate Amino Transf (AST/SGOT) 10 U/L (15-37) Alanine Aminotransferase (ALT/SGPT) 20 U/L (16-63) Alkaline Phosphatase 53 U/L (46-116) Troponin I Quantitative < 0.017 ng/mL (0.000-0.055) Total Protein 6.2 g/dL (6.4-8.2) Albumin 3.0 g/dL (3.4-5.0) Albumin/Globulin Ratio 0.9 (1.0-1.7) Urine Collection Type Unknown Urine Color Yellow Urine Clarity Clear Urine pH 5.5 (<5.0-8.0) Urine Specific [place] 1.025 (1.000-1.030) Urine Protein Negative mg/dL (NEG-TRACE) Urine Glucose (UA) 500 mg/dL (NEG) Urine Ketones (Stick) Trace mg/dL (NEG) Urine Blood Negative (NEG) Urine Nitrite Negative (NEG) Urine Bilirubin Negative (NEG) Urine Urobilinogen Dipstick 1.0 mg/dL (0.2 mg/dL) Urine Leukocyte Esterase Negative (NEG) Urine RBC 0 /HPF (0-2) Urine WBC 0 /HPF (0-4) Urine Bacteria 0 /HPF (0-FEW) Urine Hyaline Casts Occasional /HPF Urine Mucus Mod /LPF Glucose (Fingerstick) 180 mg/dL (70-99) 203 mg/dL (70-99) Test 09/26/20 08:35 09/26/20 10:52 White Blood Count 13.0 x10^3/uL (4.0-11.0) Red Blood Count 4.10 x10^6/uL (4.30-5.70) Hemoglobin 11.3 g/dL (13.0-17.5) Hematocrit 34.3 % (39.0-53.0) Mean Corpuscular Volume 84 fL (79-100) Mean Corpuscular Hemoglobin 28 pg (25-35) Mean Corpuscular Hemoglobin Concent 33 g/dL (31-37) Red Cell Distribution Width 14.5 % (11.5-14.5) Platelet Count 215 x10^3/uL (140-400) Neutrophils (%) (Auto) 80 % (31-73) Lymphocytes (%) (Auto) 8 % (24-48) Monocytes (%) (Auto) 12 % (0-9) Eosinophils (%) (Auto) 1 % (0-3) Basophils (%) (Auto) 1 % (0-3) Neutrophils # (Auto) 10.4 x10^3/uL (1.8-7.7) Lymphocytes # (Auto) 1.0 x10^3/uL (1.0-4.8) Monocytes # (Auto) 1.5 x10^3/uL (0.0-1.1) Eosinophils # (Auto) 0.1 x10^3/uL (0.0-0.7) Basophils # (Auto) 0.1 x10^3/uL (0.0-0.2) Sodium Level 135 mmol/L (136-145) Potassium Level 4.1 mmol/L (3.5-5.1) Chloride Level 102 mmol/L (98-107) Carbon Dioxide Level 23 mmol/L (21-32) Anion Gap 10 (6-14) Blood Urea Nitrogen 22 mg/dL (8-26) Creatinine 1.4 mg/dL (0.7-1.3) Estimated GFR (Cockcroft-Gault) 50.5 Glucose Level 268 mg/dL (70-99) Calcium Level 7.8 mg/dL (8.5-10.1) Magnesium Level 1.9 mg/dL (1.8-2.4) Glucose (Fingerstick) 263 mg/dL (70-99) Laboratory Tests Test 09/25/20 13:42 09/25/20 14:21 09/25/20 19:14 09/26/20 07:43 White Blood Count 14.1 x10^3/uL (4.0-11.0) Red Blood Count 4.21 x10^6/uL (4.30-5.70) Hemoglobin 11.7 g/dL (13.0-17.5) Hematocrit 35.3 % (39.0-53.0) Mean Corpuscular Volume 84 fL (79-100) Mean Corpuscular Hemoglobin 28 pg (25-35) Mean Corpuscular Hemoglobin Concent 33 g/dL (31-37) Red Cell Distribution Width 14.5 % (11.5-14.5) Platelet Count 200 x10^3/uL (140-400) Neutrophils (%) (Auto) 85 % (31-73) Lymphocytes (%) (Auto) 4 % (24-48) Monocytes (%) (Auto) 11 % (0-9) Eosinophils (%) (Auto) 0 % (0-3) Basophils (%) (Auto) 0 % (0-3) Neutrophils # (Auto) 12.0 x10^3/uL (1.8-7.7) Lymphocytes # (Auto) 0.6 x10^3/uL (1.0-4.8) Monocytes # (Auto) 1.5 x10^3/uL (0.0-1.1) Eosinophils # (Auto) 0.0 x10^3/uL (0.0-0.7) Basophils # (Auto) 0.0 x10^3/uL (0.0-0.2) Segmented Neutrophils % 75 % (35-66) Band Neutrophils % 7 % (0-9) Lymphocytes % 5 % (24-48) Monocytes % 13 % (0-10) Platelet Estimate Adequate (ADEQUATE) Sodium Level 136 mmol/L (136-145) Potassium Level 4.4 mmol/L (3.5-5.1) Chloride Level 102 mmol/L (98-107) Carbon Dioxide Level 21 mmol/L (21-32) Anion Gap 13 (6-14) Blood Urea Nitrogen 27 mg/dL (8-26) Creatinine 1.4 mg/dL (0.7-1.3) Estimated GFR (Cockcroft-Gault) 50.5 BUN/Creatinine Ratio 19 (6-20) Glucose Level 260 mg/dL (70-99) Lactic Acid Level 1.2 mmol/L (0.4-2.0) Calcium Level 8.4 mg/dL (8.5-10.1) Total Bilirubin 0.4 mg/dL (0.2-1.0) Aspartate Amino Transf (AST/SGOT) 10 U/L (15-37) Alanine Aminotransferase (ALT/SGPT) 20 U/L (16-63) Alkaline Phosphatase 53 U/L (46-116) Troponin I Quantitative < 0.017 ng/mL (0.000-0.055) Total Protein 6.2 g/dL (6.4-8.2) Albumin 3.0 g/dL (3.4-5.0) Albumin/Globulin Ratio 0.9 (1.0-1.7) Urine Collection Type Unknown Urine Color Yellow Urine Clarity Clear Urine pH 5.5 (<5.0-8.0) Urine Specific [place] 1.025 (1.000-1.030) Urine Protein Negative mg/dL (NEG-TRACE) Urine Glucose (UA) 500 mg/dL (NEG) Urine Ketones (Stick) Trace mg/dL (NEG) Urine Blood Negative (NEG) Urine Nitrite Negative (NEG) Urine Bilirubin Negative (NEG) Urine Urobilinogen Dipstick 1.0 mg/dL (0.2 mg/dL) Urine Leukocyte Esterase Negative (NEG) Urine RBC 0 /HPF (0-2) Urine WBC 0 /HPF (0-4) Urine Bacteria 0 /HPF (0-FEW) Urine Hyaline Casts Occasional /HPF Urine Mucus Mod /LPF Glucose (Fingerstick) 180 mg/dL (70-99) 203 mg/dL (70-99) Test 09/26/20 08:35 09/26/20 10:52 White Blood Count 13.0 x10^3/uL (4.0-11.0) Red Blood Count 4.10 x10^6/uL (4.30-5.70) Hemoglobin 11.3 g/dL (13.0-17.5) Hematocrit 34.3 % (39.0-53.0) Mean Corpuscular Volume 84 fL (79-100) Mean Corpuscular Hemoglobin 28 pg (25-35) Mean Corpuscular Hemoglobin Concent 33 g/dL (31-37) Red Cell Distribution Width 14.5 % (11.5-14.5) Platelet Count 215 x10^3/uL (140-400) Neutrophils (%) (Auto) 80 % (31-73) Lymphocytes (%) (Auto) 8 % (24-48) Monocytes (%) (Auto) 12 % (0-9) Eosinophils (%) (Auto) 1 % (0-3) Basophils (%) (Auto) 1 % (0-3) Neutrophils # (Auto) 10.4 x10^3/uL (1.8-7.7) Lymphocytes # (Auto) 1.0 x10^3/uL (1.0-4.8) Monocytes # (Auto) 1.5 x10^3/uL (0.0-1.1) Eosinophils # (Auto) 0.1 x10^3/uL (0.0-0.7) Basophils # (Auto) 0.1 x10^3/uL (0.0-0.2) Sodium Level 135 mmol/L (136-145) Potassium Level 4.1 mmol/L (3.5-5.1) Chloride Level 102 mmol/L (98-107) Carbon Dioxide Level 23 mmol/L (21-32) Anion Gap 10 (6-14) Blood Urea Nitrogen 22 mg/dL (8-26) Creatinine 1.4 mg/dL (0.7-1.3) Estimated GFR (Cockcroft-Gault) 50.5 Glucose Level 268 mg/dL (70-99) Calcium Level 7.8 mg/dL (8.5-10.1) Magnesium Level 1.9 mg/dL (1.8-2.4) Glucose (Fingerstick) 263 mg/dL (70-99) Assessment/Plan Assessment/Plan L perirectal abscess, recommend I and D, will schedule for AM. LARRY RODRIGUEZ MD Sep 26, 2020 12:48
[2020-09-26] MEDS ORDERED: VANCOMYCIN 1.25 GM in IV NORMAL SALINE 250ML 250 ML IV SCH (13:00)
[2020-09-26 15:00] VITALS: BP 110/52
--- NOTE | 2020-09-26 17:08 | CONS ---
DATE OF CONSULTATION: REQUESTING PHYSICIAN: Hospitalist. REASON FOR CONSULTATION: Chronic kidney disease. HISTORY OF PRESENT ILLNESS: The patient is a 65-year-old gentleman with history of diabetes mellitus, hypertension and apparent chronic kidney disease stage 3. States he has not followed with a bumboater. He is currently admitted with 1-week history of buttock pain and was found to have abscess. It is spontaneously ruptured. Due to increased level of azotemia, Nephrology evaluation requested. PAST MEDICAL HISTORY: Diabetes mellitus, benign prostatic hypertrophy, chronic kidney disease stage 3, coronary artery disease, myocardial infarction in 2013, pacemaker placement with defibrillator. ALLERGIES: None. MEDICATIONS: Reviewed per medication list. FAMILY HISTORY: Noncontributory. SOCIAL HISTORY: The patient resides independently. REVIEW OF SYSTEMS: No headache, sinus problem, nasal drainage, epistaxis, change in vision or hearing. No difficulty swallowing. No fever, chills, cough, sputum or hemoptysis. No chest pain, shortness of breath, PND, orthopnea, dyspnea on exertion. No abdominal pain. No nausea, vomiting or diarrhea. No seizures or malignancies. He has left buttock pain. PHYSICAL EXAMINATION: GENERAL APPEARANCE: The patient is awake, conversant, appropriate. HEENT: Clear. NECK: No increased JVD. No thyromegaly, mass or adenopathy. LUNGS: Clear. CARDIAC: Without S3 or rub. ABDOMEN: Soft, nontender, no bruits. EXTREMITIES: Without edema. NEUROLOGIC: Nonfocal, nonlocalized. PSYCHIATRIC: Good attention to detail, appropriate affect. LABORATORY DATA: White count 13, hemoglobin 11.3, hematocrit 34%. Sodium 135, potassium 4.1, chloride 102, CO2 of 23, BUN 22, creatinine 1.4, GFR 50.5 mL per minute. IMPRESSION: 1. Chronic kidney disease stage 3. Current setting of diabetes mellitus. 2. Left buttock abscess. 3. Coronary artery disease, status post myocardial infarction in 2013. RECOMMENDATIONS: 1. Antibiotics, pending culture results. 2. Infectious Disease consultation has been obtained. 3. Obtain fluid balance. 4. We will trend labs with you. PHILLIP JOSE MD DR: SANDY/kavon JOB#: [id number] / [id number]
--- NOTE | 2020-09-26 18:30 | EKG ---
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
[2020-09-26 19:00] VITALS: BP 111/57
[2020-09-26] MEDS: ATORVASTATIN CALCIUM 20 MG TABLET PO SCH (21:52)
[2020-09-26] MEDS ORDERED: INSULIN LISPRO 300 UNITS/3 ML VIAL. SQ ONE (22:30)
[2020-09-26 23:00] VITALS: BP 134/62
[2020-09-27] VITALS (12 sets, daily range): BP systolic 110–140; BP diastolic 52–75
[2020-09-27] MEDS: PIPERACILLIN/TAZOBACTAM 3.375 GM in IV NORMAL SALINE 50ML 50 ML IV SCH ×4 (00:11→17:40)
[2020-09-27] MEDS ORDERED: BUPIVACAINE-EPI 0.5% 30 ML VIAL KIT. ONE (07:11)
[2020-09-27] MEDS ORDERED: MORPHINE SULFATE 2 MG/ML VIAL. IV PRN (07:30)
[2020-09-27] MEDS ORDERED: ONDANSETRON PF 4 MG/2 ML VIAL. IV PRN (07:30)
[2020-09-27] MEDS ORDERED: PROCHLORPERAZINE 10 MG/2 ML VIAL. IV PRN (07:30)
[2020-09-27] MEDS ORDERED: IV RINGERS,LACTATED 1000ML 1,000 ML IV SCH (07:30)
[2020-09-27] MEDS ORDERED: fentaNYL PF VIAL 100 MCG/2 ML VIAL IV PRN ×2 (07:30)
[2020-09-27] MEDS ORDERED: HYDROmorphone 2 MG/ML VIAL IV PRN (07:30)
[2020-09-27] MEDS: INSULIN LISPRO 300 UNITS/3 ML VIAL. SQ SCH ×4 (08:00→18:50)
--- NOTE | 2020-09-27 08:19 | NUR ---
@ 3116AM, Dr. Stiles was paged and notified of patient Blood culture positive of Gram positive diplococci in 1 of 4 bottles and no new order received at this time
[2020-09-27] MEDS: ASPIRIN ENTERIC COATED 81 MG TABLET.DR. PO SCH (09:00)
--- NOTE | 2020-09-27 09:02 | PDOC ---
Infectious Disease Note Subjective: Subjective Pt awaiting surgery later today no f/n/v/d Vital Signs: Vital Signs Vital Signs Date Time Temp Pulse Resp B/P (MAP) Pulse Ox O2 Delivery O2 Flow Rate FiO2 09/27/20 07:00 80 18 121/52 (75) 94 Room Air 09/27/20 03:05 99.5 99.5 Physical Exam: PHYSICAL EXAM GENERAL: Alert, oriented x 3 male lying in bed comfortably, in no acute distress. HEENT: Normocephalic, atraumatic, anicteric. NECK: Supple, no JVD. LUNGS: Clear bilaterally. HEART: S1, S2. No gallops or murmurs. ABDOMEN: Soft, nontender, nondistended. Bowel sounds present. EXTREMITIES: No edema, no cyanosis. Left buttock has subcutaneous swelling, redness, tenderness, induration. NEUROLOGIC: Alert and oriented x 3, grossly nonfocal. PSYCHIATRIC: Cooperative, appropriate mood and affect. Medications: Inpatient Meds: Current Medications Medications (Trade) Dose Ordered Sig/Mendez Start Time Stop Time Status Last Admin Dose Admin Acetaminophen (Tylenol) 650 mg PRN Q6HRS PRN 09/25/20 20:45 09/25/20 21:38 650 MG Aspirin (Ecotrin) 81 mg DAILY 09/26/20 09:00 09/26/20 09:34 81 MG Atorvastatin Calcium (Lipitor) 20 mg HS 09/25/20 21:00 09/26/20 21:52 20 MG Bupivacaine HCl/ Epinephrine Bitart (Sensorcain-Epi 0.5% Kit) 30 ml STK-MED ONCE 09/27/20 07:11 09/27/20 07:11 DC Clopidogrel Bisulfate (Plavix) 75 mg DAILY 09/26/20 09:00 09/26/20 09:33 DC Dextrose (Dextrose 50%-Water Syringe) 12.5 gm PRN Q15MIN PRN 09/26/20 09:30 Fentanyl Citrate (Fentanyl 2ml Vial) 50 mcg PRN Q5MIN PRN 09/27/20 07:30 09/28/20 07:29 Furosemide (Lasix) 40 mg DAILY 09/26/20 09:00 09/26/20 09:34 DC Glipizide (Glucotrol) 5 mg DAILY 09/26/20 09:00 09/26/20 09:34 DC Hydromorphone HCl (Dilaudid) 0.5 mg PRN Q10MIN PRN 09/27/20 07:30 09/28/20 07:29 Info (CONTRAST GIVEN -- Rx MONITORING) 1 each PRN DAILY PRN 09/25/20 14:30 09/27/20 14:29 Insulin Human Lispro (HumaLOG) 3 units 1X ONCE 09/26/20 22:30 09/26/20 22:31 DC 09/26/20 22:08 3 UNITS Iohexol (Omnipaque 300 Mg/ml) 60 ml 1X ONCE 09/25/20 14:30 09/25/20 14:31 DC 09/25/20 14:50 60 ML Linezolid (Zyvox) 600 mg BID 09/26/20 11:00 09/26/20 21:52 600 MG Metformin HCl (Glucophage Xr) 2,000 mg DAILYWBKFT 09/26/20 08:00 09/26/20 09:34 DC Mexiletine HCl (Mexitil) 200 mg TID 09/25/20 21:00 09/26/20 21:52 200 MG Morphine Sulfate (Morphine Sulfate) 1 mg PRN Q10MIN PRN 09/27/20 07:30 09/28/20 07:29 Ondansetron HCl (Zofran) 4 mg PRN Q6HRS PRN 09/27/20 07:30 09/28/20 07:29 Piperacillin Sod/ Tazobactam Sod 3.375 gm/Sodium Chloride 50 ml @ 100 mls/hr Q6HRS 09/26/20 12:00 09/27/20 06:10 100 MLS/HR Potassium Chloride (Klor-Con) 20 meq DAILY 09/26/20 09:00 09/26/20 09:34 DC Prochlorperazine Edisylate (Compazine) 5 mg PACU PRN PRN 09/27/20 07:30 09/28/20 07:29 Ringer's Solution 1,000 ml @ 30 mls/hr Q24H 09/27/20 07:30 09/27/20 19:29 Sacubitril/ Valsartan (Entresto 49 Mg-51 Mg) 1 tab HS 09/25/20 21:00 Sodium Chloride 1,000 ml @ 1,000 mls/hr Q1H 09/25/20 13:45 09/25/20 14:44 DC 09/25/20 14:18 1,000 MLS/HR Spironolactone (Aldactone) 25 mg DAILY 09/26/20 09:00 09/26/20 09:34 DC Vancomycin HCl (Vanco Per Pharmacy) 1 each PRN DAILY PRN 09/25/20 15:00 09/26/20 10:13 DC 09/25/20 19:52 1 EACH Vancomycin HCl (Vancomycin Trough Level) 1 each 1X ONCE 09/27/20 06:30 09/27/20 06:31 Cancel Vancomycin HCl 1.25 gm/Sodium Chloride 250 ml @ 167 mls/hr Q18H 09/26/20 13:00 09/26/20 10:11 DC Vancomycin HCl 1.5 gm/Sodium Chloride 500 ml @ 250 mls/hr 1X ONCE 09/25/20 17:30 09/25/20 19:29 DC 09/25/20 19:14 250 MLS/HR Labs: Lab Laboratory Tests Test 09/26/20 10:52 09/26/20 12:20 09/26/20 16:51 09/26/20 20:38 Glucose (Fingerstick) 263 mg/dL (70-99) 217 mg/dL (70-99) 255 mg/dL (70-99) SARS-CoV-2 Antigen (Rapid) Negative (NEGATIVE) Test 09/27/20 07:47 Glucose (Fingerstick) 196 mg/dL (70-99) Micro RUN DATE: 09/27/20 [facility] LAB *LIVE* PAGE 1 RUN TIME: 806 Specimen Inquiry PATIENT: RADHA CRAFT ACCT: [id number] LOC: [address] [place] [address] U: [id number] AGE/SX: 65/M ROOM: 440 RE09/25/[address]: CLARITA TORRES III, DO : 1955 BED: 1 D IS: STATUS: ADM IN TLOC: SPEC #: [id number] ANALILIA: 09/25/20 STATUS: COMP REQ #: [id number] RECD: 09/25/[address]: YURI LUGO MD SOURCE: BLOOD ENTR: 09/25/[address]: CLARITA TORRES III, DO SPDESC: AMNA LUGO MD, VENU S MD SIMMONS, TERRY A MD ORDERED: BCULT Procedure Result BLOOD CULTURE Final GRAM POSITIVE DIPLOCOCCI SEEN IN 1 OF 4 BOTTLES, 2 SETS COLLECTED. CALLED TO Daren/MAURICIO QUINTANILLA AT 0806 09/27/20 BY DEE. CULTURE SENT TO [facility] FOR FURTHER WORKUP. Objective: Assessment: Lt perirectal abscess, lt buttock cellulitis Leukocytosis. Fever. Gram-positive diplococci in blood culture 1/2 bottles poa Urinary retention from benign prostatic hypertrophy. Diabetes mellitus, poorly controlled. Acute kidney injury. Plan: Plan of Care Continue Zosyn Zyvox Follow-up gram-positive diplococci in blood culture Follow up labs and cultures. General Surgery consulted Continue local care. Awaiting I &D later today Discussed with DARYN. YURI LUGO MD Sep 27, 2020 09:02
[2020-09-27] MEDS ORDERED: SEVOFLURANE 16 TO 30 MINUTES. IH ONE (09:31)
[2020-09-27] MEDS ORDERED: LIDOCAINE 2% PF 5 ML VIAL. ONE (09:31)
[2020-09-27] MEDS ORDERED: fentaNYL PF VIAL 100 MCG/2 ML VIAL ONE (09:31)
[2020-09-27] MEDS ORDERED: ONDANSETRON PF 4 MG/2 ML VIAL. ONE (09:31)
[2020-09-27] MEDS ORDERED: DEXAMETHASONE SOD PHOS 4 MG/ML VIAL ONE (09:31)
[2020-09-27] MEDS ORDERED: KETOROLAC 30 MG/ML VIAL. ONE (09:31)
[2020-09-27] MEDS ORDERED: PROPOFOL 10 MG/ML (20ML) VIAL. IV ONE (09:31)
--- NOTE | 2020-09-27 09:42 | PDOC ---
[employer] PROGRESS NOTE Date of Service DOS: DATE: 09/27/20 TIME: 09:41 Chief Complaint Chief Complaint Sepsis Gram-positive diplococci bacteremia Acute left buttock abscess Hyponatremia MARVEL due to vasomotornephropathy DM uncontrolled ID consult for empiric IV Abx Surgery consult for abscess Continue IVF Lovenox for DVT prophylaxis ADA diet Full code Discussed with RN and SW Disposition on-call to surgery for I&D Surrogate decision maker is the History of Present Illness History of Present Illness 09/26/20 No acute events overnight. fevers of Tmax of 101.0. Pain is controlled. IV Abx. Patient's chart, labs, images were reviewed and discussed with RN 65-year-old male who presented today because he was having problems with urinary retention, also had a boil on his right buttock. The boil actually leaked some fluid last night, seems to have opened up. He also has some "knots" in his stomach and feels distended. While in the ER, they did a straight catheterization. He has got 300 mL out. He also has a known history of BPH. I discussed the case with ER physician. We are going to admit the patient and treat his buttock abscess with surrounding cellulitis and we will probably admit him for a Tomlinson in, although I spoke with his nurse and he would like to try to urinate on his own for a few more hours, but I suspect he is going to need a Tomlinson. The patient rates his pain at 7/10 and describes as pressure-like in sensation. Vitals/I&O Vitals/I&O: Vital Signs Date Time Temp Pulse Resp B/P (MAP) Pulse Ox O2 Delivery O2 Flow Rate FiO2 09/27/20 09:01 79 20 113/58 97 Room Air 09/27/20 03:05 99.5 99.5 I & O 09/26/20 09/26/20 09/27/20 15:00 23:00 07:00 Intake Total 720 ml 480 ml Output Total 650 ml 600 ml Balance 70 ml 480 ml -600 ml Physical Exam Physical Exam: GENERAL: Alert, oriented x 3 male lying in bed comfortably, in no acute distress. HEENT: Normocephalic, atraumatic, anicteric. NECK: Supple, no JVD. LUNGS: Clear bilaterally. HEART: S1, S2. No gallops or murmurs. ABDOMEN: Soft, nontender, nondistended. Bowel sounds present. EXTREMITIES: No edema, no cyanosis. Left buttock has subcutaneous swelling, redness, tenderness, induration. NEUROLOGIC: Alert and oriented x 3, grossly nonfocal. PSYCHIATRIC: Cooperative, appropriate mood and affect. General: Alert, Oriented X3, Cooperative Abdomen: Soft, No tenderness Extremities: No clubbing, No cyanosis Labs Labs: Laboratory Tests Test 09/26/20 10:52 09/26/20 12:20 09/26/20 16:51 09/26/20 20:38 Glucose (Fingerstick) 263 mg/dL (70-99) 217 mg/dL (70-99) 255 mg/dL (70-99) SARS-CoV-2 Antigen (Rapid) Negative (NEGATIVE) Test 09/27/20 07:47 Glucose (Fingerstick) 196 mg/dL (70-99) Assessment and Plan Assessmemt and Plan Problems Medical Problems: (1) Abscess and cellulitis of gluteal region Status: Acute (2) Urinary retention Status: Acute Comment Review of Relevant I have reviewed the following items kavin (where applicable) has been applied. Medications: Current Medications Medications (Trade) Dose Ordered Sig/Mendez Route PRN Reason Start Time Stop Time Status Last Admin Dose Admin Insulin Human Lispro (HumaLOG) 0-7 UNITS TIDWMEALS SQ 09/26/20 12:00 09/26/20 17:50 Piperacillin Sod/ Tazobactam Sod 3.375 gm/Sodium Chloride 50 ml @ 100 mls/hr Q6HRS IV 09/26/20 12:00 09/27/20 06:10 Linezolid (Zyvox) 600 mg BID PO 09/26/20 11:00 09/26/20 21:52 Insulin Human Lispro (HumaLOG) 3 units 1X ONCE SQ 09/26/20 22:30 09/26/20 22:31 DC 09/26/20 22:08 Justifications for Admission Other Justification STEPH BROOKS MD Sep 27, 2020 09:42
--- NOTE | 2020-09-27 10:23 | PDOC4 ---
Operative Note Operative Note Operative Note: Preoperative Diagnosis: Perirectal abscess Postoperative Diagnosis: Same Procedure: Incision and drainage of perirectal abscess Surgeon: Fred Anesthesia: General EBL: 30 mL Specimen: Cultures to microbiology Drains: None Complications: None Indication: The patient is a 65-year-old male presented with a perirectal abscess. He was offered surgical treatment with incision and drainage. The risks of surgery were discussed which include bleeding, infection, recurrence, pain, anesthetic risk, potential need for additional surgery or procedure. He understands and would like to proceed. Description: The patient was taken to the operating room and placed supine on the operating table. General anesthesia was performed. He was then placed in lithotomy. The perianal skin was prepped with Betadine and draped in a standard surgical manner. The abscess was located along the left perirectal tissues. An incision was made in the skin and a fluctuant area with some devitalized ulcerated skin. There was immediate return of purulent fluid which was cultured. Some of the devitalized skin was excised to facilitate drainage. The incision was extended some superiorly. Finger dissection was used to free up all loculations and pockets of abscess. The entire cavity was then irrigated with sterile saline. Hemostasis was achieved with cautery. The wound was then packed with sterile gauze and a dressing was applied. The patient tolerated the procedure well and was sent to the recovery room in stable condition. At the end of the case all counts were correct. LARRY RODRIGUEZ MD Sep 27, 2020 10:23
[2020-09-27] MEDS ORDERED: HYDROcodone/APAP 5/325MG 1 TAB TABLET PO PRN ×2 (10:30)
[2020-09-27] MEDS: LINEZOLID 600 MG TABLET PO SCH ×2 (11:48→22:17)
[2020-09-27] MEDS: MEXILETINE HCL 200 MG CAPSULE PO SCH ×3 (11:48→22:18)
--- NOTE | 2020-09-27 17:52 | NUR ---
Paged doctor regarding patient BS of 366. Dr. Santos returned called and ordered received.
[2020-09-27] MEDS ORDERED: INSULIN LISPRO 300 UNITS/3 ML VIAL. SQ ONE ×2 (19:00→23:00)
--- NOTE | 2020-09-27 19:21 | NUR ---
After given patient 8 units of insulin and after dinner, Pts BS was recheck in one hour per Dr. Santos, recheck BS was 416. Dr. Santos was paged again for the new BS, and returned call and ordered received to give additional 12 units of Insulin lispro one time and BS will recheck by night staff in one hour.
[2020-09-27] MEDS: SACUBITRIL/VALSARTAN 49/51MG TABLET. PO SCH (22:16)
[2020-09-27] MEDS: ATORVASTATIN CALCIUM 20 MG TABLET PO SCH (22:17)
[2020-09-27] MEDS: LACTOBACILLUS RHAMNOSUS GG 1 CAPSULE. PO SCH (22:17)
[2020-09-28] MEDS: PIPERACILLIN/TAZOBACTAM 3.375 GM in IV NORMAL SALINE 50ML 50 ML IV SCH ×5 (00:02→23:37)
[2020-09-28 03:00] VITALS: BP 106/52
[2020-09-28 07:00] VITALS: BP 128/64
[2020-09-28] MEDS: LINEZOLID 600 MG TABLET PO SCH (08:15)
[2020-09-28] MEDS: ASPIRIN ENTERIC COATED 81 MG TABLET.DR. PO SCH (08:15)
[2020-09-28] MEDS: MEXILETINE HCL 200 MG CAPSULE PO SCH ×3 (08:15→20:46)
[2020-09-28] MEDS: LACTOBACILLUS RHAMNOSUS GG 1 CAPSULE. PO SCH ×2 (08:15→20:46)
[2020-09-28] MEDS: INSULIN LISPRO 300 UNITS/3 ML VIAL. SQ SCH ×3 (08:19→16:49)
--- NOTE | 2020-09-28 08:21 | PDOC ---
Infectious Disease Note Subjective: Subjective Patient feels better Has postop site pain Denies fever, nausea, vomiting, shortness of breath, diarrhea, abdominal pain, rash Otherwise as above Vital Signs: Vital Signs Vital Signs Date Time Temp Pulse Resp B/P (MAP) Pulse Ox O2 Delivery O2 Flow Rate FiO2 09/28/20 07:00 98.0 71 14 128/64 (85) 94 Room Air 98.0 09/27/20 10:48 10 Physical Exam: PHYSICAL EXAM GENERAL: Alert, oriented x 3 male lying in bed comfortably, in no acute distress. HEENT: Normocephalic, atraumatic, anicteric. NECK: Supple, no JVD. LUNGS: Clear bilaterally. HEART: S1, S2. No gallops or murmurs. ABDOMEN: Soft, nontender, nondistended. Bowel sounds present. EXTREMITIES: No edema, no cyanosis. Left perirectal wound present, mild surrounding redness, tenderness, induration. Improving NEUROLOGIC: Alert and oriented x 3, grossly nonfocal. PSYCHIATRIC: Cooperative, appropriate mood and affect. Medications: Inpatient Meds: Current Medications Medications (Trade) Dose Ordered Sig/Mendez Start Time Stop Time Status Last Admin Dose Admin Acetaminophen (Tylenol) 650 mg PRN Q6HRS PRN 09/25/20 20:45 09/25/20 21:38 650 MG Acetaminophen/ Hydrocodone Bitart (Lortab 5/325) 2 tab PRN Q4HRS PRN 09/27/20 10:30 Aspirin (Ecotrin) 81 mg DAILY 09/26/20 09:00 09/28/20 08:15 81 MG Atorvastatin Calcium (Lipitor) 20 mg HS 09/25/20 21:00 09/27/20 22:17 20 MG Bupivacaine HCl/ Epinephrine Bitart (Sensorcain-Epi 0.5% Kit) 30 ml STK-MED ONCE 09/27/20 07:11 09/27/20 07:11 DC Clopidogrel Bisulfate (Plavix) 75 mg DAILY 09/26/20 09:00 09/26/20 09:33 DC Dexamethasone Sodium Phosphate (Decadron) 4 mg STK-MED ONCE 09/27/20 09:31 09/27/20 09:31 DC Dextrose (Dextrose 50%-Water Syringe) 12.5 gm PRN Q15MIN PRN 09/26/20 09:30 Fentanyl Citrate (Fentanyl 2ml Vial) 100 mcg STK-MED ONCE 09/27/20 09:31 09/27/20 09:31 DC Furosemide (Lasix) 40 mg DAILY 09/26/20 09:00 09/26/20 09:34 DC Glipizide (Glucotrol) 5 mg DAILY 09/26/20 09:00 09/26/20 09:34 DC Hydromorphone HCl (Dilaudid) 0.5 mg PRN Q10MIN PRN 09/27/20 07:30 09/28/20 07:29 DC Info (CONTRAST GIVEN -- Rx MONITORING) 1 each PRN DAILY PRN 09/25/20 14:30 09/27/20 14:29 DC Insulin Human Lispro (HumaLOG) 4 units 1X ONCE 09/27/20 23:00 09/27/20 23:01 DC 09/27/20 22:38 4 UNITS Iohexol (Omnipaque 300 Mg/ml) 60 ml 1X ONCE 09/25/20 14:30 09/25/20 14:31 DC 09/25/20 14:50 60 ML Ketorolac Tromethamine (Toradol 30mg Vial) 30 mg STK-MED ONCE 09/27/20 09:31 09/27/20 09:31 DC Lactobacillus Rhamnosus (Culturelle) 1 cap BID 09/27/20 21:00 09/28/20 08:15 1 CAP Lidocaine HCl (Lidocaine Pf 2% Vial) 5 ml STK-MED ONCE 09/27/20 09:31 09/27/20 09:31 DC Linezolid (Zyvox) 600 mg BID 09/26/20 11:00 09/28/20 08:15 600 MG Metformin HCl (Glucophage Xr) 2,000 mg DAILYWBKFT 09/26/20 08:00 09/26/20 09:34 DC Mexiletine HCl (Mexitil) 200 mg TID 09/25/20 21:00 09/28/20 08:15 200 MG Morphine Sulfate (Morphine Sulfate) 1 mg PRN Q10MIN PRN 09/27/20 07:30 09/28/20 07:29 DC Ondansetron HCl (Zofran) 4 mg STK-MED ONCE 09/27/20 09:31 09/27/20 09:31 DC Piperacillin Sod/ Tazobactam Sod 3.375 gm/Sodium Chloride 50 ml @ 100 mls/hr Q6HRS 09/26/20 12:00 09/28/20 06:02 100 MLS/HR Potassium Chloride (Klor-Con) 20 meq DAILY 09/26/20 09:00 09/26/20 09:34 DC Prochlorperazine Edisylate (Compazine) 5 mg PACU PRN PRN 09/27/20 07:30 09/28/20 07:29 DC Propofol (Diprivan) 200 mg STK-MED ONCE 09/27/20 09:31 09/27/20 09:31 DC Ringer's Solution 1,000 ml @ 30 mls/hr Q24H 09/27/20 07:30 09/27/20 19:29 DC Sacubitril/ Valsartan (Entresto 49 Mg-51 Mg) 1 tab HS 09/25/20 21:00 09/27/20 22:16 1 TAB Sevoflurane (Ultane) 15 ml STK-MED ONCE 09/27/20 09:31 09/27/20 09:31 DC Sodium Chloride 1,000 ml @ 1,000 mls/hr Q1H 09/25/20 13:45 09/25/20 14:44 DC 09/25/20 14:18 1,000 MLS/HR Spironolactone (Aldactone) 25 mg DAILY 09/26/20 09:00 09/26/20 09:34 DC Vancomycin HCl (Vanco Per Pharmacy) 1 each PRN DAILY PRN 09/25/20 15:00 09/26/20 10:13 DC 09/25/20 19:52 1 EACH Vancomycin HCl (Vancomycin Trough Level) 1 each 1X ONCE 09/27/20 06:30 09/27/20 06:31 Cancel Vancomycin HCl 1.25 gm/Sodium Chloride 250 ml @ 167 mls/hr Q18H 09/26/20 13:00 09/26/20 10:11 DC Vancomycin HCl 1.5 gm/Sodium Chloride 500 ml @ 250 mls/hr 1X ONCE 09/25/20 17:30 09/25/20 19:29 DC 09/25/20 19:14 250 MLS/HR Labs: Lab Laboratory Tests Test 09/27/20 10:33 09/27/20 11:33 09/27/20 17:02 09/27/20 18:34 Glucose (Fingerstick) 194 mg/dL (70-99) 235 mg/dL (70-99) 366 mg/dL (70-99) 416 mg/dL (70-99) Test 09/27/20 20:41 09/28/20 07:14 Glucose (Fingerstick) 323 mg/dL (70-99) 221 mg/dL (70-99) Micro RUN DATE: 09/28/20 [facility] LAB *LIVE* PAGE 1 RUN TIME: 0848 Specimen Inquiry PATIENT: RADHA CRAFT Kristel ACCT: [id number] LOC: [address] [place] [address] U: [id number] AGE/SX: 65/M ROOM: 440 RE09/25/[address]: CLARITA TORRES III, DO : 1955 BED: 1 DIS: STATUS: ADM IN TLOC: SPEC #: [id number] ANALILIA: 01/15/21-1500 STATUS: COMP REQ #: [id number] RECD: 09/25/20 [facility] DR: YURI LUGO MD SOURCE: BLOOD ENTR: 09/25/20-[address]: CLARITA TORRES III, DO [facility]: AMNA LUGO MD, VENU S MD SIMMONS, TERRY A MD ORDERED: BCULT Procedure Result BLOOD CULTURE Final GRAM POSITIVE DIPLOCOCCI SEEN IN 1 OF 4 BOTTLES, 2 SETS COLLECTED. CALLED TO N/MAURICIO QUINTANILLA AT 0806 09/27/20 BY DEE. CULTURE SENT TO [facility] FOR FURTHER WORKUP. AMMENDED REPORT: SECOND BOTTLE OF THIS SET NOW HAS GRAM POSITIVE COCCI, 2 OF 4 BOTTLES, TWO SETS DRAWN. ONE OF TWO SETS POSITIVE. CALLED TO RONAK HSIEH RN ON 4N AT 8:45 ON 09/28/20 [facility] * This is a corrected result. * A prior result that was reported as final has been changed. Objective: Assessment: Lt perirectal abscess s/p I and D on Sep 27 Leukocytosis. Fever. Gram-positive cocci not diplococci in blood culture 2 out of 4 bottles present on admission(corrected report for microbiology) Urinary retention from benign prostatic hypertrophy. Diabetes mellitus, poorly controlled. Acute kidney injury. Plan: Plan of Care Continue Zosyn DC Zyvox Start daptomycin Follow-up gram-positive cocci in blood culture f/u intraoperative cultures Follow up labs Repeat blood cultures Wound care as directed Discussed with RN. YURI LUGO MD Sep 28, 2020 08:21
--- NOTE | 2020-09-28 09:53 | NUR ---
SW following. Discussed with RN, pt from home, room air, ada diet, COVID-19 negative. Pt had surgery 09/27/2020. Pt on IV abx, blood cultures positive this morning. SW will continue to follow.
--- NOTE | 2020-09-28 10:06 | PDOC ---
[employer] PROGRESS NOTE Date of Service DOS: DATE: 09/28/20 TIME: 09:57 Chief Complaint Chief Complaint A/P: Sepsis Gram-positive diplococci bacteremia Acute left buttock abscess Hyponatremia MARVEL on CKD3 due to vasomotornephropathy DM uncontrolled CHF s/p AICD placement CAD BPH ID consult for empiric IV Abx Surgery consult for abscess Continue IVF Lovenox for DVT prophylaxis ADA diet Full code Discussed with RN and SW Disposition on-call to surgery for I&D Surrogate decision maker is the History of Present Illness History of Present Illness Mr Monge is a 65 yo M w/ PMHx CHF s/p AICD placement, DM2, CAD, BPH, CKD3 who presented to ED having problems with urinary retention, also had a boil on his right buttock. Abscess spontaneously ruptured. Rated his pain at 7/10 and describes as pressure-like in sensation. 09/26: No acute events overnight. fevers of Tmax of 101.0. Pain is controlled. IV Abx. Patient's chart, labs, images were reviewed and discussed with RN 09/27: To OR for I&D of perirectal abscess Afebrile. Pain is improved. Blood cultures 2 out of 4 positive for gram- positive cocci in pairs. He is able to have 2 BM overnight. No chest pain or shortness of breath. Vitals/I&O Vitals/I&O: Vital Signs Date Time Temp Pulse Resp B/P (MAP) Pulse Ox O2 Delivery O2 Flow Rate FiO2 09/28/20 08:00 Room Air 09/28/20 07:00 98.0 71 14 128/64 (85) 94 98.0 09/27/20 10:48 10 I & O 09/27/20 09/27/20 09/28/20 15:00 23:00 07:00 Intake Total 300 ml 500 ml 3364 ml Output Total 0 ml Balance 300 ml 500 ml 3364 ml Physical Exam Physical Exam: GENERAL: Alert, oriented x 3 male lying in bed comfortably, in no acute distress. HEENT: Normocephalic, atraumatic, anicteric. NECK: Supple, no JVD. LUNGS: Clear bilaterally. HEART: S1, S2. No gallops or murmurs. ABDOMEN: Soft, nontender, nondistended. Bowel sounds present. EXTREMITIES: No edema, no cyanosis. Left perirectal wound present, mild surrounding redness, tenderness, induration. Improving NEUROLOGIC: Alert and oriented x 3, grossly nonfocal. PSYCHIATRIC: Cooperative, appropriate mood and affect. General: Alert, Oriented X3, Cooperative Abdomen: Soft, No tenderness Extremities: No clubbing, No cyanosis Labs Labs: Laboratory Tests Test 09/27/20 10:33 09/27/20 11:33 09/27/20 17:02 09/27/20 18:34 Glucose (Fingerstick) 194 mg/dL (70-99) 235 mg/dL (70-99) 366 mg/dL (70-99) 416 mg/dL (70-99) Test 09/27/20 20:41 09/28/20 07:14 Glucose (Fingerstick) 323 mg/dL (70-99) 221 mg/dL (70-99) Assessment and Plan Assessmemt and Plan Problems Medical Problems: (1) Abscess and cellulitis of gluteal region Status: Acute (2) Urinary retention Status: Acute Comment Review of Relevant I have reviewed the following items kavin (where applicable) has been applied. Medications: Current Medications Medications (Trade) Dose Ordered Sig/Mendez Route PRN Reason Start Time Stop Time Status Last Admin Dose Admin Lactobacillus Rhamnosus (Culturelle) 1 cap BID PO 09/27/20 21:00 09/28/20 08:15 Insulin Human Lispro (HumaLOG) 12 units 1X ONCE SQ 09/27/20 19:00 09/27/20 19:01 DC 09/27/20 19:03 Insulin Human Lispro (HumaLOG) 4 units 1X ONCE SQ 09/27/20 23:00 09/27/20 23:01 DC 09/27/20 22:38 Justifications for Admission Other Justification LULÚ GASPAR MD Sep 28, 2020 10:06
--- NOTE | 2020-09-28 10:32 | PDOC ---
JYOTSNA FERNANDES CLIENT SERVICE CONSULTANT 09/28/20 1032: SURGICAL PROGRESS NOTE DATE: 09/28/20 TIME: 10:31 Subjective doing well sore when sits down Vital Signs Vital Signs Date Time Temp Pulse Resp B/P (MAP) Pulse Ox O2 Delivery O2 Flow Rate FiO2 09/28/20 08:00 Room Air 09/28/20 07:00 98.0 71 14 128/64 (85) 94 98.0 09/27/20 10:48 10 I&O Intake and Output 09/28/20 07:00 Intake Total 4164 ml Output Total 0 ml Balance 4164 ml Intake Oral 1200 ml IV Total 2964 ml Estimated Blood Loss 0 ml # Voids 6 General: Alert, Oriented X3, Cooperative Skin: Other (dressing intact) Labs Laboratory Tests Test 09/26/20 10:52 09/26/20 12:20 09/26/20 16:51 09/26/20 20:38 Glucose (Fingerstick) 263 mg/dL (70-99) 217 mg/dL (70-99) 255 mg/dL (70-99) Coronavirus (PCR) Not detected (Not Detected) SARS-CoV-2 Antigen (Rapid) Negative (NEGATIVE) Test 09/27/20 07:47 09/27/20 10:33 09/27/20 11:33 09/27/20 17:02 Glucose (Fingerstick) 196 mg/dL (70-99) 194 mg/dL (70-99) 235 mg/dL (70-99) 366 mg/dL (70-99) Test 09/27/20 18:34 09/27/20 20:41 09/28/20 07:14 Glucose (Fingerstick) 416 mg/dL (70-99) 323 mg/dL (70-99) 221 mg/dL (70-99) Laboratory Tests Test 09/27/20 10:33 09/27/20 11:33 09/27/20 17:02 09/27/20 18:34 Glucose (Fingerstick) 194 mg/dL (70-99) 235 mg/dL (70-99) 366 mg/dL (70-99) 416 mg/dL (70-99) Test 09/27/20 20:41 09/28/20 07:14 Glucose (Fingerstick) 323 mg/dL (70-99) 221 mg/dL (70-99) Problem List Problems Medical Problems: (1) Abscess and cellulitis of gluteal region Status: Acute (2) Urinary retention Status: Acute Assessment/Plan wound care, abx Justicifation of Admission Dx: Justifications for Admission: Justification of Admission Dx: Yes Comments: perirectal abscess LARRY RODRIGUEZ MD 09/28/20 1327: SURGICAL PROGRESS NOTE Assessment/Plan Agree with above JYOTSNA FERNANDES APRN Sep 28, 2020 10:32 LARRY RODRIGUEZ MD Sep 28, 2020 13:27
[2020-09-28 11:00] VITALS: BP 112/57
--- NOTE | 2020-09-28 11:24 | PDOC ---
DATE OF SERVICE DATE: 09/28/20 TIME: 11:17 SUBJECTIVE ROS Pt repors he is feeling better , currently no complaints OBJECTIVE Vital Signs Vital Signs Date Time Temp Pulse Resp B/P (MAP) Pulse Ox O2 Delivery O2 Flow Rate FiO2 09/28/20 08:00 Room Air 09/28/20 07:00 98.0 71 14 128/64 (85) 94 98.0 09/27/20 10:48 10 I & 0 Intake and Output 09/28/20 07:00 Intake Total 4164 ml Output Total 0 ml Balance 4164 ml Intake Oral 1200 ml IV Total 2964 ml Estimated Blood Loss 0 ml # Voids 6 PHYSICAL EXAM Physical Exam GENERAL: no acute distress. HEENT: Normocephalic, atraumatic, anicteric., OM moist NECK: Supple, no JVD. LUNGS: Clear bilaterally. HEART: S1, S2. No gallops or murmurs. ABDOMEN: Soft, nontender, nondistended. Bowel sounds present. EXTREMITIES: No edema, no cyanosis. Left perirectal wound present NEUROLOGIC: Alert and oriented x 3, grossly nonfocal. PSYCHIATRIC: Cooperative, appropriate mood and affect. No dolan, no cva or sp tenderness DIAGNOSIS/ASSESSMENT Assessment & Plan MARVEL vs CKD stage 3- per pt report never been told about Dx of CKD, he has labs done Q 6 month with PCP- Dr. Gregg Maharaj and Sheet Taker Dr. Thomas @ No labs since 09/26 , Ordered for tomorrow . Takes Ibuprofen approx 3/week for chronic shoulder pain Supportive care, avoid nephrotoxins , please Obtain labs from PCP/Sheet Taker Urinary retention POA - CT scan Mild bilateral pelviectasis. No overt hydronephrosis. No radiopaque stones. Bladder Moderately distended. resolved, currently reports good uop Sepsis/ Gram-positive diplococci bacteremia Acute left buttock abscess Hyponatremia- no recent labs DM uncontrolled CHF s/p AICD placement CAD BPH COMMENT/RELEVANT DATA Meds Current Medications Medications (Trade) Dose Ordered Sig/Mendez Start Time Stop Time Status Last Admin Dose Admin Acetaminophen (Tylenol) 650 mg PRN Q6HRS PRN 09/25/20 20:45 09/25/20 21:38 650 MG Acetaminophen/ Hydrocodone Bitart (Lortab 5/325) 2 tab PRN Q4HRS PRN 09/27/20 10:30 Aspirin (Ecotrin) 81 mg DAILY 09/26/20 09:00 09/28/20 08:15 81 MG Atorvastatin Calcium (Lipitor) 20 mg HS 09/25/20 21:00 09/27/20 22:17 20 MG Bupivacaine HCl/ Epinephrine Bitart (Sensorcain-Epi 0.5% Kit) 30 ml STK-MED ONCE 09/27/20 07:11 09/27/20 07:11 DC Clopidogrel Bisulfate (Plavix) 75 mg DAILY 09/26/20 09:00 09/26/20 09:33 DC Daptomycin 530 mg/ Sodium Chloride 50 ml @ 100 mls/hr Q24H 09/28/20 12:00 Dexamethasone Sodium Phosphate (Decadron) 4 mg STK-MED ONCE 09/27/20 09:31 09/27/20 09:31 DC Dextrose (Dextrose 50%-Water Syringe) 12.5 gm PRN Q15MIN PRN 09/26/20 09:30 Fentanyl Citrate (Fentanyl 2ml Vial) 100 mcg STK-MED ONCE 09/27/20 09:31 09/27/20 09:31 DC Furosemide (Lasix) 40 mg DAILY 09/26/20 09:00 09/26/20 09:34 DC Glipizide (Glucotrol) 5 mg DAILY 09/26/20 09:00 09/26/20 09:34 DC Hydromorphone HCl (Dilaudid) 0.5 mg PRN Q10MIN PRN 09/27/20 07:30 09/28/20 07:29 DC Info (CONTRAST GIVEN -- Rx MONITORING) 1 each PRN DAILY PRN 09/25/20 14:30 09/27/20 14:29 DC Insulin Human Lispro (HumaLOG) 4 units 1X ONCE 09/27/20 23:00 09/27/20 23:01 DC 09/27/20 22:38 4 UNITS Iohexol (Omnipaque 300 Mg/ml) 60 ml 1X ONCE 09/25/20 14:30 09/25/20 14:31 DC 09/25/20 14:50 60 ML Ketorolac Tromethamine (Toradol 30mg Vial) 30 mg STK-MED ONCE 09/27/20 09:31 09/27/20 09:31 DC Lactobacillus Rhamnosus (Culturelle) 1 cap BID 09/27/20 21:00 09/28/20 08:15 1 CAP Lidocaine HCl (Lidocaine Pf 2% Vial) 5 ml STK-MED ONCE 09/27/20 09:31 09/27/20 09:31 DC Linezolid (Zyvox) 600 mg BID 09/26/20 11:00 09/28/20 09:57 DC 09/28/20 08:15 600 MG Metformin HCl (Glucophage Xr) 2,000 mg DAILYWBKFT 09/26/20 08:00 09/26/20 09:34 DC Mexiletine HCl (Mexitil) 200 mg TID 09/25/20 21:00 09/28/20 08:15 200 MG Morphine Sulfate (Morphine Sulfate) 1 mg PRN Q10MIN PRN 09/27/20 07:30 09/28/20 07:29 DC Ondansetron HCl (Zofran) 4 mg STK-MED ONCE 09/27/20 09:31 09/27/20 09:31 DC Piperacillin Sod/ Tazobactam Sod 3.375 gm/Sodium Chloride 50 ml @ 100 mls/hr Q6HRS 09/26/20 12:00 09/28/20 06:02 100 MLS/HR Potassium Chloride (Klor-Con) 20 meq DAILY 09/26/20 09:00 09/26/20 09:34 DC Prochlorperazine Edisylate (Compazine) 5 mg PACU PRN PRN 09/27/20 07:30 09/28/20 07:29 DC Propofol (Diprivan) 200 mg STK-MED ONCE 09/27/20 09:31 09/27/20 09:31 DC Ringer's Solution 1,000 ml @ 30 mls/hr Q24H 09/27/20 07:30 09/27/20 19:29 DC Sacubitril/ Valsartan (Entresto 49 Mg-51 Mg) 1 tab HS 09/25/20 21:00 09/27/20 22:16 1 TAB Sevoflurane (Ultane) 15 ml STK-MED ONCE 09/27/20 09:31 09/27/20 09:31 DC Sodium Chloride 1,000 ml @ 1,000 mls/hr Q1H 09/25/20 13:45 09/25/20 14:44 DC 09/25/20 14:18 1,000 MLS/HR Spironolactone (Aldactone) 25 mg DAILY 09/26/20 09:00 09/26/20 09:34 DC Vancomycin HCl (Vanco Per Pharmacy) 1 each PRN DAILY PRN 09/25/20 15:00 09/26/20 10:13 DC 09/25/20 19:52 1 EACH Vancomycin HCl (Vancomycin Trough Level) 1 each 1X ONCE 09/27/20 06:30 09/27/20 06:31 Cancel Vancomycin HCl 1.25 gm/Sodium Chloride 250 ml @ 167 mls/hr Q18H 09/26/20 13:00 09/26/20 10:11 DC Vancomycin HCl 1.5 gm/Sodium Chloride 500 ml @ 250 mls/hr 1X ONCE 09/25/20 17:30 09/25/20 19:29 DC 09/25/20 19:14 250 MLS/HR Lab Laboratory Tests Test 09/27/20 11:33 09/27/20 17:02 09/27/20 18:34 09/27/20 20:41 Glucose (Fingerstick) 235 mg/dL (70-99) 366 mg/dL (70-99) 416 mg/dL (70-99) 323 mg/dL (70-99) Test 09/28/20 07:14 09/28/20 10:43 Glucose (Fingerstick) 221 mg/dL (70-99) 273 mg/dL (70-99) Results All relevant outside records, renal labs, imaging studies, telemetry/EKG's were reviewed. Justicifation of Admission Dx: Justifications for Admission: Justification of Admission Dx: Yes KELLIE HINDS MD Sep 28, 2020 11:24
[2020-09-28] MEDS: DAPTOmycin (GENERIC) IVPB 530 MG in IV NORMAL SALINE 50ML 50 ML IV SCH (12:56)
[2020-09-28 15:00] VITALS: BP 132/72
--- NOTE | 2020-09-28 17:23 | NUR ---
Wound/Ostomy Care Wound Type/Assessment: WC consult for left buttock abscess, I&D done 09/27/[address] Ibarra. Wound is red non-granulation with slough, fat, and muscle exposed. WOund pictured, measured, assessed and redressed. Treatment Recommendations/Plan: Repacked wound with aquacel ag and covered with ABD and hypafix tape. Recommend to change daily. Education provided: WC POC and Pu prevention Offloading surface/device: WC cushion ordered Recommended Referrals/Tests: follow up in wound clinic Discharge Recommendations for dressings: continue as above noted
[2020-09-28 19:00] VITALS: BP 128/64
[2020-09-28] MEDS: ATORVASTATIN CALCIUM 20 MG TABLET PO SCH (20:46)
[2020-09-28] MEDS: SACUBITRIL/VALSARTAN 49/51MG TABLET. PO SCH (20:46)
[2020-09-28 22:51] VITALS: BP 119/65
[2020-09-29] VITALS (7 sets, daily range): BP systolic 106–137; BP diastolic 55–71
[2020-09-29] MEDS: PIPERACILLIN/TAZOBACTAM 3.375 GM in IV NORMAL SALINE 50ML 50 ML IV SCH ×4 (05:40→23:56)
--- NOTE | 2020-09-29 08:02 | PDOC ---
[employer] PROGRESS NOTE Date of Service DOS: DATE: 09/29/20 TIME: 07:59 Chief Complaint Chief Complaint A/P: Sepsis Gram-positive diplococci bacteremia Acute left buttock abscess Hyponatremia MARVEL on CKD3 due to vasomotornephropathy DM uncontrolled CHF s/p AICD placement CAD BPH ID consult for empiric IV Abx Surgery consult for abscess Continue IVF Lovenox for DVT prophylaxis ADA diet Full code Discussed with RN and SW Disposition on-call to surgery for I&D Surrogate decision maker is the History of Present Illness History of Present Illness Mr Monge is a 65 yo M w/ PMHx CHF s/p AICD placement, DM2, CAD, BPH, CKD3 who presented to ED having problems with urinary retention, also had a boil on his right buttock. Abscess spontaneously ruptured. Rated his pain at 7/10 and describes as pressure-like in sensation. 09/26: No acute events overnight. Fevers of Tmax of 101.0. Pain is controlled. IV Abx. Patient's chart, labs, images were reviewed and discussed with RN 09/27: To OR for I&D of perirectal abscess 09/28: Afebrile. Pain is improved. Blood cultures 2 out of 4 positive for gram- positive cocci in pairs. He is able to have 2 BM overnight. No chest pain or shortness of breath. Afebrile. Final cultures still pending - blood is staph warneri and wound staph aureus. Wound much better today. Has a lot of questions, all answered today. Vitals/I&O Vitals/I&O: Vital Signs Date Time Temp Pulse Resp B/P (MAP) Pulse Ox O2 Delivery O2 Flow Rate FiO2 09/29/20 02:54 98.1 74 18 106/64 (78) 94 Room Air 98.1 I & O 09/28/20 09/28/20 09/29/20 15:00 23:00 07:00 Intake Total 180 ml 180 ml 300 ml Output Total 200 ml 690 ml Balance 180 ml -20 ml -390 ml Physical Exam Physical Exam: GENERAL: Alert, oriented x 3 male lying in bed comfortably, in no acute distress. HEENT: Normocephalic, atraumatic, anicteric. NECK: Supple, no JVD. LUNGS: Clear bilaterally. HEART: S1, S2. No gallops or murmurs. ABDOMEN: Soft, nontender, nondistended. Bowel sounds present. EXTREMITIES: No edema, no cyanosis. Left perirectal wound present, mild surrounding redness, tenderness, induration. Improving NEUROLOGIC: Alert and oriented x 3, grossly nonfocal. PSYCHIATRIC: Cooperative, appropriate mood and affect. General: Alert, Oriented X3, Cooperative Abdomen: Soft, No tenderness Extremities: No clubbing, No cyanosis Skin: Other (dressing intact) Labs Labs: Laboratory Tests Test 09/28/20 10:43 09/28/20 16:35 09/28/20 19:02 Glucose (Fingerstick) 273 mg/dL (70-99) 228 mg/dL (70-99) 326 mg/dL (70-99) Assessment and Plan Assessmemt and Plan Problems Medical Problems: (1) Abscess and cellulitis of gluteal region Status: Acute (2) Urinary retention Status: Acute Comment Review of Relevant I have reviewed the following items kavin (where applicable) has been applied. Medications: Current Medications Medications (Trade) Dose Ordered Sig/Mendez Route PRN Reason Start Time Stop Time Status Last Admin Dose Admin Daptomycin 530 mg/ Sodium Chloride 50 ml @ 100 mls/hr Q24H IV 09/28/20 12:00 09/28/20 12:56 Justifications for Admission Other Justification LULÚ GASPAR MD Sep 29, 2020 08:02
[2020-09-29] MEDS: LACTOBACILLUS RHAMNOSUS GG 1 CAPSULE. PO SCH ×2 (08:29→20:55)
[2020-09-29] MEDS: MEXILETINE HCL 200 MG CAPSULE PO SCH ×3 (08:29→20:55)
[2020-09-29] MEDS: ASPIRIN ENTERIC COATED 81 MG TABLET.DR. PO SCH (08:29)
[2020-09-29] MEDS: INSULIN LISPRO 300 UNITS/3 ML VIAL. SQ SCH ×3 (08:32→16:44)
[2020-09-29] MEDS ORDERED: INSULIN GLARGINE SYRINGE. SQ ONE (09:00)
--- NOTE | 2020-09-29 09:14 | PDOC ---
DATE OF SERVICE DATE: 09/29/20 TIME: 09:14 SUBJECTIVE ROS stable, no complaints OBJECTIVE Vital Signs Vital Signs Date Time Temp Pulse Resp B/P (MAP) Pulse Ox O2 Delivery O2 Flow Rate FiO2 09/29/20 07:00 97.7 67 18 132/55 (80) 93 Room Air 97.7 I & 0 Intake and Output 09/29/20 07:00 Intake Total 660 ml Output Total 890 ml Balance -230 ml Intake Oral 660 ml Output Urine Total 890 ml # Voids 3 # Bowel Movements 1 PHYSICAL EXAM Physical Exam GENERAL: no acute distress. HEENT: Normocephalic, atraumatic, anicteric., OM moist NECK: Supple, no JVD. LUNGS: Clear bilaterally. HEART: S1, S2. No gallops or murmurs. ABDOMEN: Soft, nontender, nondistended. Bowel sounds present. EXTREMITIES: No edema, no cyanosis. Left perirectal wound present NEUROLOGIC: Alert and oriented x 3, grossly nonfocal. PSYCHIATRIC: Cooperative, appropriate mood and affect. No dolan, no cva or sp tenderness DIAGNOSIS/ASSESSMENT Assessment & Plan MARVEL - ATN - per pt he has never been told about Dx of CKD, he has labs done Q 6 month with PCP- Dr. Gregg Maharaj and Retail Analyst Dr. Thomas @ [facility] improving ,No labs available from his PCP's /Card office Takes Ibuprofen approx 3/week for chronic shoulder pain , advised against NSAID's Supportive care, avoid nephrotoxins , Urinary retention POA - CT scan Mild bilateral pelviectasis. No overt hydronephrosis. No radiopaque stones. Bladder Moderately distended. resolved, currently reports good uop Sepsis/ Gram-positive diplococci bacteremia Acute left buttock abscess Hyponatremia- no recent labs DM uncontrolled CHF s/p AICD placement CAD BPH COMMENT/RELEVANT DATA Meds Current Medications Medications (Trade) Dose Ordered Sig/Mendez Start Time Stop Time Status Last Admin Dose Admin Acetaminophen (Tylenol) 650 mg PRN Q6HRS PRN 09/25/20 20:45 09/25/20 21:38 650 MG Acetaminophen/ Hydrocodone Bitart (Lortab 5/325) 2 tab PRN Q4HRS PRN 09/27/20 10:30 Aspirin (Ecotrin) 81 mg DAILY 09/26/20 09:00 09/29/20 08:29 81 MG Atorvastatin Calcium (Lipitor) 20 mg HS 09/25/20 21:00 09/28/20 20:46 20 MG Bupivacaine HCl/ Epinephrine Bitart (Sensorcain-Epi 0.5% Kit) 30 ml STK-MED ONCE 09/27/20 07:11 09/27/20 07:11 DC Clopidogrel Bisulfate (Plavix) 75 mg DAILY 09/26/20 09:00 09/26/20 09:33 DC Daptomycin 530 mg/ Sodium Chloride 50 ml @ 100 mls/hr Q24H 09/28/20 12:00 09/28/20 12:56 100 MLS/HR Dexamethasone Sodium Phosphate (Decadron) 4 mg STK-MED ONCE 09/27/20 09:31 09/27/20 09:31 DC Dextrose (Dextrose 50%-Water Syringe) 12.5 gm PRN Q15MIN PRN 09/26/20 09:30 Fentanyl Citrate (Fentanyl 2ml Vial) 100 mcg STK-MED ONCE 09/27/20 09:31 09/27/20 09:31 DC Furosemide (Lasix) 40 mg DAILY 09/26/20 09:00 09/26/20 09:34 DC Glipizide (Glucotrol) 5 mg DAILY 09/26/20 09:00 09/26/20 09:34 DC Hydromorphone HCl (Dilaudid) 0.5 mg PRN Q10MIN PRN 09/27/20 07:30 09/28/20 07:29 DC Info (CONTRAST GIVEN -- Rx MONITORING) 1 each PRN DAILY PRN 09/25/20 14:30 09/27/20 14:29 DC Insulin Glargine (Lantus Syringe) 10 unit 1X ONCE 09/29/20 09:00 09/29/20 09:01 DC 09/29/20 08:31 10 UNIT Insulin Human Lispro (HumaLOG) 4 units 1X ONCE 09/27/20 23:00 09/27/20 23:01 DC 09/27/20 22:38 4 UNITS Iohexol (Omnipaque 300 Mg/ml) 60 ml 1X ONCE 09/25/20 14:30 09/25/20 14:31 DC 09/25/20 14:50 60 ML Ketorolac Tromethamine (Toradol 30mg Vial) 30 mg STK-MED ONCE 09/27/20 09:31 09/27/20 09:31 DC Lactobacillus Rhamnosus (Culturelle) 1 cap BID 09/27/20 21:00 09/29/20 08:29 1 CAP Lidocaine HCl (Lidocaine Pf 2% Vial) 5 ml STK-MED ONCE 09/27/20 09:31 09/27/20 09:31 DC Linezolid (Zyvox) 600 mg BID 09/26/20 11:00 09/28/20 09:57 DC 09/28/20 08:15 600 MG Metformin HCl (Glucophage Xr) 2,000 mg DAILYWBKFT 09/26/20 08:00 09/26/20 09:34 DC Mexiletine HCl (Mexitil) 200 mg TID 09/25/20 21:00 09/29/20 08:29 200 MG Morphine Sulfate (Morphine Sulfate) 1 mg PRN Q10MIN PRN 09/27/20 07:30 09/28/20 07:29 DC Ondansetron HCl (Zofran) 4 mg STK-MED ONCE 09/27/20 09:31 09/27/20 09:31 DC Piperacillin Sod/ Tazobactam Sod 3.375 gm/Sodium Chloride 50 ml @ 100 mls/hr Q6HRS 09/26/20 12:00 09/29/20 05:40 100 MLS/HR Potassium Chloride (Klor-Con) 20 meq DAILY 09/26/20 09:00 09/26/20 09:34 DC Prochlorperazine Edisylate (Compazine) 5 mg PACU PRN PRN 09/27/20 07:30 09/28/20 07:29 DC Propofol (Diprivan) 200 mg STK-MED ONCE 09/27/20 09:31 09/27/20 09:31 DC Ringer's Solution 1,000 ml @ 30 mls/hr Q24H 09/27/20 07:30 09/27/20 19:29 DC Sacubitril/ Valsartan (Entresto 49 Mg-51 Mg) 1 tab HS 09/25/20 21:00 09/28/20 20:46 1 TAB Sevoflurane (Ultane) 15 ml STK-MED ONCE 09/27/20 09:31 09/27/20 09:31 DC Sodium Chloride 1,000 ml @ 1,000 mls/hr Q1H 09/25/20 13:45 09/25/20 14:44 DC 09/25/20 14:18 1,000 MLS/HR Spironolactone (Aldactone) 25 mg DAILY 09/26/20 09:00 09/26/20 09:34 DC Vancomycin HCl (Vanco Per Pharmacy) 1 each PRN DAILY PRN 09/25/20 15:00 09/26/20 10:13 DC 09/25/20 19:52 1 EACH Vancomycin HCl (Vancomycin Trough Level) 1 each 1X ONCE 09/27/20 06:30 09/27/20 06:31 Cancel Vancomycin HCl 1.25 gm/Sodium Chloride 250 ml @ 167 mls/hr Q18H 09/26/20 13:00 09/26/20 10:11 DC Vancomycin HCl 1.5 gm/Sodium Chloride 500 ml @ 250 mls/hr 1X ONCE 09/25/20 17:30 09/25/20 19:29 DC 09/25/20 19:14 250 MLS/HR Lab Laboratory Tests Test 09/28/20 10:43 09/28/20 16:35 09/28/20 19:02 09/29/20 08:16 Glucose (Fingerstick) 273 mg/dL (70-99) 228 mg/dL (70-99) 326 mg/dL (70-99) 254 mg/dL (70-99) Results All relevant outside records, renal labs, imaging studies, telemetry/EKG's were reviewed. Justicifation of Admission Dx: Justifications for Admission: Justification of Admission Dx: Yes KELLIE HINDS MD Sep 29, 2020 09:14
--- NOTE | 2020-09-29 09:29 | PDOC ---
Infectious Disease Note Subjective: Subjective Patient feels better Has postop site pain Denies fever, nausea, vomiting, shortness of breath, diarrhea, abdominal pain, rash Otherwise as above Vital Signs: Vital Signs Vital Signs Date Time Temp Pulse Resp B/P (MAP) Pulse Ox O2 Delivery O2 Flow Rate FiO2 09/29/20 07:00 97.7 67 18 132/55 (80) 93 Room Air 97.7 Physical Exam: PHYSICAL EXAM GENERAL: Alert, oriented x 3 male lying in bed comfortably, in no acute distress. HEENT: Normocephalic, atraumatic, anicteric. NECK: Supple, no JVD. LUNGS: Clear bilaterally. HEART: S1, S2. No gallops or murmurs. ABDOMEN: Soft, nontender, nondistended. Bowel sounds present. EXTREMITIES: No edema, no cyanosis. Left perirectal wound present, mild surrounding redness, tenderness, induration. Improving NEUROLOGIC: Alert and oriented x 3, grossly nonfocal. PSYCHIATRIC: Cooperative, appropriate mood and affect. Medications: Inpatient Meds: Current Medications Medications (Trade) Dose Ordered Sig/Mendez Start Time Stop Time Status Last Admin Dose Admin Acetaminophen (Tylenol) 650 mg PRN Q6HRS PRN 09/25/20 20:45 09/25/20 21:38 650 MG Acetaminophen/ Hydrocodone Bitart (Lortab 5/325) 2 tab PRN Q4HRS PRN 09/27/20 10:30 Aspirin (Ecotrin) 81 mg DAILY 09/26/20 09:00 09/29/20 08:29 81 MG Atorvastatin Calcium (Lipitor) 20 mg HS 09/25/20 21:00 09/28/20 20:46 20 MG Bupivacaine HCl/ Epinephrine Bitart (Sensorcain-Epi 0.5% Kit) 30 ml STK-MED ONCE 09/27/20 07:11 09/27/20 07:11 DC Clopidogrel Bisulfate (Plavix) 75 mg DAILY 09/26/20 09:00 09/26/20 09:33 DC Daptomycin 530 mg/ Sodium Chloride 50 ml @ 100 mls/hr Q24H 09/28/20 12:00 09/28/20 12:56 100 MLS/HR Dexamethasone Sodium Phosphate (Decadron) 4 mg STK-MED ONCE 09/27/20 09:31 09/27/20 09:31 DC Dextrose (Dextrose 50%-Water Syringe) 12.5 gm PRN Q15MIN PRN 09/26/20 09:30 Fentanyl Citrate (Fentanyl 2ml Vial) 100 mcg STK-MED ONCE 09/27/20 09:31 09/27/20 09:31 DC Furosemide (Lasix) 40 mg DAILY 09/26/20 09:00 09/26/20 09:34 DC Glipizide (Glucotrol) 5 mg DAILY 09/26/20 09:00 09/26/20 09:34 DC Hydromorphone HCl (Dilaudid) 0.5 mg PRN Q10MIN PRN 09/27/20 07:30 09/28/20 07:29 DC Info (CONTRAST GIVEN -- Rx MONITORING) 1 each PRN DAILY PRN 09/25/20 14:30 09/27/20 14:29 DC Insulin Glargine (Lantus Syringe) 10 unit 1X ONCE 09/29/20 09:00 09/29/20 09:01 DC 09/29/20 08:31 10 UNIT Insulin Human Lispro (HumaLOG) 4 units 1X ONCE 09/27/20 23:00 09/27/20 23:01 DC 09/27/20 22:38 4 UNITS Iohexol (Omnipaque 300 Mg/ml) 60 ml 1X ONCE 09/25/20 14:30 09/25/20 14:31 DC 09/25/20 14:50 60 ML Ketorolac Tromethamine (Toradol 30mg Vial) 30 mg STK-MED ONCE 09/27/20 09:31 09/27/20 09:31 DC Lactobacillus Rhamnosus (Culturelle) 1 cap BID 09/27/20 21:00 09/29/20 08:29 1 CAP Lidocaine HCl (Lidocaine Pf 2% Vial) 5 ml STK-MED ONCE 09/27/20 09:31 09/27/20 09:31 DC Linezolid (Zyvox) 600 mg BID 09/26/20 11:00 09/28/20 09:57 DC 09/28/20 08:15 600 MG Metformin HCl (Glucophage Xr) 2,000 mg DAILYWBKFT 09/26/20 08:00 09/26/20 09:34 DC Mexiletine HCl (Mexitil) 200 mg TID 09/25/20 21:00 09/29/20 08:29 200 MG Morphine Sulfate (Morphine Sulfate) 1 mg PRN Q10MIN PRN 09/27/20 07:30 09/28/20 07:29 DC Ondansetron HCl (Zofran) 4 mg STK-MED ONCE 09/27/20 09:31 09/27/20 09:31 DC Piperacillin Sod/ Tazobactam Sod 3.375 gm/Sodium Chloride 50 ml @ 100 mls/hr Q6HRS 09/26/20 12:00 09/29/20 05:40 100 MLS/HR Potassium Chloride (Klor-Con) 20 meq DAILY 09/26/20 09:00 09/26/20 09:34 DC Prochlorperazine Edisylate (Compazine) 5 mg PACU PRN PRN 09/27/20 07:30 09/28/20 07:29 DC Propofol (Diprivan) 200 mg STK-MED ONCE 09/27/20 09:31 09/27/20 09:31 DC Ringer's Solution 1,000 ml @ 30 mls/hr Q24H 09/27/20 07:30 09/27/20 19:29 DC Sacubitril/ Valsartan (Entresto 49 Mg-51 Mg) 1 tab HS 09/25/20 21:00 09/28/20 20:46 1 TAB Sevoflurane (Ultane) 15 ml STK-MED ONCE 09/27/20 09:31 09/27/20 09:31 DC Sodium Chloride 1,000 ml @ 1,000 mls/hr Q1H 09/25/20 13:45 09/25/20 14:44 DC 09/25/20 14:18 1,000 MLS/HR Spironolactone (Aldactone) 25 mg DAILY 09/26/20 09:00 09/26/20 09:34 DC Vancomycin HCl (Vanco Per Pharmacy) 1 each PRN DAILY PRN 09/25/20 15:00 09/26/20 10:13 DC 09/25/20 19:52 1 EACH Vancomycin HCl (Vancomycin Trough Level) 1 each 1X ONCE 09/27/20 06:30 09/27/20 06:31 Cancel Vancomycin HCl 1.25 gm/Sodium Chloride 250 ml @ 167 mls/hr Q18H 09/26/20 13:00 09/26/20 10:11 DC Vancomycin HCl 1.5 gm/Sodium Chloride 500 ml @ 250 mls/hr 1X ONCE 09/25/20 17:30 09/25/20 19:29 DC 09/25/20 19:14 250 MLS/HR Labs: Lab Laboratory Tests Test 09/28/20 10:43 09/28/20 16:35 09/28/20 19:02 09/29/20 08:16 Glucose (Fingerstick) 273 mg/dL (70-99) 228 mg/dL (70-99) 326 mg/dL (70-99) 254 mg/dL (70-99) Micro RUN DATE: 09/28/20 [facility] *LIVE* PAGE 1 RUN TIME: 0848 Specimen Inquiry PATIENT: RADHA CRAFT ACCT: [id number] LOC: [address] [place] [address] U: [id number] AGE/SX: 65/M ROOM: 440 RE09/25/[address]: CLARITA TORRES III DO : 1955 BED: 1 DIS: STATUS: ADM IN TLOC: SPEC #: [id number] ANALILIA: 09/25/20 STATUS: REYNOLD REQ #: [id number] RECD: 09/25/[address] [facility] [address]: YURI LUGO MD SOURCE: BLOOD ENTR: 09/25/20-[address] [facility] [address]: CLARITA TORRES III, DO [facility] AMNA LUGO MD, VENU S MD SIMMONS, TERRY A MD ORDERED: BCULT Procedure Result BLOOD CULTURE Final GRAM POSITIVE DIPLOCOCCI SEEN IN 1 OF 4 BOTTLES, 2 SETS COLLECTED. CALLED TO Vincenzo/MAURICIO QUINTANILLA AT 0806 09/27/20 BY DEE. CULTURE SENT TO [facility] FOR FURTHER WORKUP. AMMENDED REPORT: SECOND BOTTLE OF THIS SET NOW HAS GRAM POSITIVE COCCI, 2 OF 4 BOTTLES, TWO SETS DRAWN. ONE OF TWO SETS POSITIVE. CALLED TO RONAK HSIEH RN ON 4N AT 8:45 ON 09/28/20 [facility] * This is a corrected result. * A prior result that was reported as final has been changed. Objective: Assessment: Lt perirectal abscess s/p I and D on Sep 27 cult Staph aureus Leukocytosis. Fever. Gram-positive cocci bacteremia not diplococci in blood culture 2 out of 4 bottles present on admission(corrected report per microbiology) Urinary retention from benign prostatic hypertrophy. Diabetes mellitus, poorly controlled. Acute kidney injury. Plan: Plan of Care Follow blood cultures still pending continue Zosyn Cont daptomycin Follow-up gram-positive cocci in blood culture Follow up labs Follow-up repeat blood cultures September 29 Wound care as directed Hold discharge until cultures are back Discussed with RN. YURI LUGO MD Sep 29, 2020 09:29
--- NOTE | 2020-09-29 10:42 | NUR ---
SW following. Discussed with RN, pt from home, room air, ada diet, IV abx. Per ID note, hold DC until cultures are back. Pt can follow up with the wound clinic at discharge. SW will continue to follow. SW will continue to follow.
[2020-09-29 11:23] LABS: CALCIUM 8.2 mg/dL (8.5-10.1); CREATININE 1.2 mg/dL (0.7-1.3); GFR 60.4; POTASSIUM 4.2 mmol/L (3.5-5.1)
--- NOTE | 2020-09-29 11:39 | PDOC ---
JYOTSNA FERNANDES MUD MIXER OPERATOR 09/29/20 1139: SURGICAL PROGRESS NOTE DATE: 09/29/20 TIME: 11:38 Subjective doing well no complaints Vital Signs Vital Signs Date Time Temp Pulse Resp B/P (MAP) Pulse Ox O2 Delivery O2 Flow Rate FiO2 09/29/20 11:00 97.9 69 18 128/59 (82) 94 Room Air 97.9 I&O Intake and Output 09/29/20 07:00 Intake Total 660 ml Output Total 890 ml Balance -230 ml Intake Oral 660 ml Output Urine Total 890 ml # Voids 3 # Bowel Movements 1 General: Alert, Oriented X3, Cooperative Skin: Other (wound packed) Labs Laboratory Tests Test 09/27/20 17:02 09/27/20 18:34 09/27/20 20:41 09/28/20 07:14 Glucose (Fingerstick) 366 mg/dL (70-99) 416 mg/dL (70-99) 323 mg/dL (70-99) 221 mg/dL (70-99) Test 09/28/20 10:43 09/28/20 16:35 09/28/20 19:02 09/29/20 08:16 Glucose (Fingerstick) 273 mg/dL (70-99) 228 mg/dL (70-99) 326 mg/dL (70-99) 254 mg/dL (70-99) Test 09/29/20 10:06 Sodium Level 139 mmol/L (136-145) Potassium Level 4.2 mmol/L (3.5-5.1) Chloride Level 107 mmol/L (98-107) Carbon Dioxide Level 24 mmol/L (21-32) Anion Gap 8 (6-14) Blood Urea Nitrogen 13 mg/dL (8-26) Creatinine 1.2 mg/dL (0.7-1.3) Estimated GFR (Cockcroft-Gault) 60.4 Glucose Level 251 mg/dL (70-99) Calcium Level 8.2 mg/dL (8.5-10.1) Creatine Kinase 93 U/L (39-308) Laboratory Tests Test 09/28/20 16:35 09/28/20 19:02 09/29/20 08:16 09/29/20 10:06 Glucose (Fingerstick) 228 mg/dL (70-99) 326 mg/dL (70-99) 254 mg/dL (70-99) Sodium Level 139 mmol/L (136-145) Potassium Level 4.2 mmol/L (3.5-5.1) Chloride Level 107 mmol/L (98-107) Carbon Dioxide Level 24 mmol/L (21-32) Anion Gap 8 (6-14) Blood Urea Nitrogen 13 mg/dL (8-26) Creatinine 1.2 mg/dL (0.7-1.3) Estimated GFR (Cockcroft-Gault) 60.4 Glucose Level 251 mg/dL (70-99) Calcium Level 8.2 mg/dL (8.5-10.1) Creatine Kinase 93 U/L (39-308) Problem List Problems Medical Problems: (1) Abscess and cellulitis of gluteal region Status: Acute (2) Urinary retention Status: Acute Assessment/Plan home per ID, [facility] wound care FU continue local wound care call for questions Justicifation of Admission Dx: Justifications for Admission: Justification of Admission Dx: Yes LARRY RODRIGUEZ MD 09/30/20 1411: SURGICAL PROGRESS NOTE Assessment/Plan Agree with above JYOTSNA FERNANDES 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
[2020-09-29] MEDS: metFORMIN 500 MG TABLET PO SCH ×2 (12:15→16:50)
[2020-09-29] MEDS: DAPTOmycin (GENERIC) IVPB 530 MG in IV NORMAL SALINE 50ML 50 ML IV SCH (13:07)
[2020-09-29] MEDS: MULTIVITAMIN with MINERAL TABLET. PO SCH (13:36)
[2020-09-29] MEDS: glipiZIDE 5 MG TABLET PO SCH (16:50)
[2020-09-29] MEDS: ATORVASTATIN CALCIUM 20 MG TABLET PO SCH (20:55)
[2020-09-29] MEDS: SACUBITRIL/VALSARTAN 49/51MG TABLET. PO SCH (20:56)
[2020-09-29] MEDS ORDERED: LOPERAMIDE 2 MG CAPSULE PO PRN (21:30)
[2020-09-29] MEDS ORDERED: metroNIDAZOLE 500 MG TABLET PO SCH (22:00)
[2020-09-30 02:45] VITALS: BP 138/74
[2020-09-30] MEDS: PIPERACILLIN/TAZOBACTAM 3.375 GM in IV NORMAL SALINE 50ML 50 ML IV SCH ×4 (05:45→23:41)
[2020-09-30 07:00] VITALS: BP 118/64
--- NOTE | 2020-09-30 07:27 | PDOC ---
[employer] PROGRESS NOTE Date of Service DOS: DATE: 09/30/20 TIME: 07:27 Chief Complaint Chief Complaint A/P: Sepsis Gram-positive diplococci bacteremia Acute left buttock abscess Hyponatremia MARVEL on CKD3 due to vasomotornephropathy DM uncontrolled CHF s/p AICD placement CAD BPH ID consult for empiric IV Abx Surgery consult for abscess Continue IVF Lovenox for DVT prophylaxis ADA diet Full code Discussed with RN and SW Disposition on-call to surgery for I&D Surrogate decision maker is the History of Present Illness History of Present Illness Mr Monge is a 65 yo M w/ PMHx CHF s/p AICD placement, DM2, CAD, BPH, CKD3 who presented to ED having problems with urinary retention, also had a boil on his right buttock. Abscess spontaneously ruptured. Rated his pain at 7/10 and describes as pressure-like in sensation. 09/26: No acute events overnight. Fevers of Tmax of 101.0. Pain is controlled. IV Abx. Patient's chart, labs, images were reviewed and discussed with RN 09/27: To OR for I&D of perirectal abscess 09/28: Afebrile. Pain is improved. Blood cultures 2 out of 4 positive for gram- positive cocci in pairs. He is able to have 2 BM overnight. No chest pain or shortness of breath. 09/29: Afebrile. Final cultures still pending - blood is staph warneri and wound staph aureus. Wound much better today. Has a lot of questions, all answered today. Afebrile. Wound with MRSA. blood cultures with multiple organisms, awaiting repeat blood culture results. Pain controlled. had some diarrhea overnight, immodium helped Vitals/I&O Vitals/I&O: Vital Signs Date Time Temp Pulse Resp B/P (MAP) Pulse Ox O2 Delivery O2 Flow Rate FiO2 09/30/20 02:45 97.9 84 18 138/74 (95) 97 Room Air 97.9 I & O 09/29/20 09/29/20 09/30/20 15:00 23:00 07:00 Intake Total 600 ml Balance 600 ml Physical Exam Physical Exam: GENERAL: Alert, oriented x 3 male lying in bed comfortably, in no acute distress. HEENT: Normocephalic, atraumatic, anicteric. NECK: Supple, no JVD. LUNGS: Clear bilaterally. HEART: S1, S2. No gallops or murmurs. ABDOMEN: Soft, nontender, nondistended. Bowel sounds present. EXTREMITIES: No edema, no cyanosis. Left perirectal wound present, mild surrounding redness, tenderness, induration. Improving NEUROLOGIC: Alert and oriented x 3, grossly nonfocal. PSYCHIATRIC: Cooperative, appropriate mood and affect. General: Alert, Oriented X3, Cooperative Abdomen: Soft, No tenderness Extremities: No clubbing, No cyanosis Skin: Other (wound packed) Labs Labs: Laboratory Tests Test 09/29/20 08:16 09/29/20 10:06 09/29/20 11:51 09/29/20 16:42 Glucose (Fingerstick) 254 mg/dL (70-99) 194 mg/dL (70-99) 148 mg/dL (70-99) Sodium Level 139 mmol/L (136-145) Potassium Level 4.2 mmol/L (3.5-5.1) Chloride Level 107 mmol/L (98-107) Carbon Dioxide Level 24 mmol/L (21-32) Anion Gap 8 (6-14) Blood Urea Nitrogen 13 mg/dL (8-26) Creatinine 1.2 mg/dL (0.7-1.3) Estimated GFR (Cockcroft-Gault) 60.4 Glucose Level 251 mg/dL (70-99) Calcium Level 8.2 mg/dL (8.5-10.1) Creatine Kinase 93 U/L (39-308) Test 09/29/20 18:57 Glucose (Fingerstick) 209 mg/dL (70-99) Assessment and Plan Assessmemt and Plan Problems Medical Problems: (1) Abscess and cellulitis of gluteal region Status: Acute (2) Urinary retention Status: Acute Comment Review of Relevant I have reviewed the following items kavin (where applicable) has been applied. Medications: Current Medications Medications (Trade) Dose Ordered Sig/Mendez Route PRN Reason Start Time Stop Time Status Last Admin Dose Admin Insulin Glargine (Lantus Syringe) 10 unit 1X ONCE SQ 09/29/20 09:00 09/29/20 09:01 DC 09/29/20 08:31 Metformin HCl (Glucophage) 1,000 mg BIDWMEALS PO 09/29/20 12:00 09/29/20 16:50 Glipizide (Glucotrol) 5 mg BIDBFRMEAL PO 09/29/20 16:30 09/29/20 16:50 Multivitamins (Thera M Plus) 1 tab DAILY PO 09/29/20 14:00 09/29/20 13:36 Justifications for Admission Other Justification LULÚ GASPAR MD Sep 30, 2020 07:27
[2020-09-30] MEDS: metFORMIN 500 MG TABLET PO SCH ×2 (08:31→17:03)
[2020-09-30] MEDS: ASPIRIN ENTERIC COATED 81 MG TABLET.DR. PO SCH (08:31)
[2020-09-30] MEDS: metroNIDAZOLE 500 MG TABLET PO SCH ×3 (08:31→21:02)
[2020-09-30] MEDS: LACTOBACILLUS RHAMNOSUS GG 1 CAPSULE. PO SCH ×2 (08:31→21:01)
[2020-09-30] MEDS: MULTIVITAMIN with MINERAL TABLET. PO SCH (08:31)
[2020-09-30] MEDS: glipiZIDE 5 MG TABLET PO SCH ×2 (08:31→17:03)
[2020-09-30] MEDS: MEXILETINE HCL 200 MG CAPSULE PO SCH ×3 (08:31→21:01)
[2020-09-30] MEDS: INSULIN LISPRO 300 UNITS/3 ML VIAL. SQ SCH ×3 (08:36→16:52)
--- NOTE | 2020-09-30 10:11 | NUR ---
SW following. Discussed with RN, pt from home, room air, ada diet, COVID-19 negative. Pt follows at the [facility] wound clinic. Cultures etc still pending to determine abx. SW will continue to follow.
--- NOTE | 2020-09-30 10:48 | PDOC ---
DATE OF SERVICE DATE: 09/30/20 TIME: 10:47 SUBJECTIVE ROS stable, no complaints OBJECTIVE Vital Signs Vital Signs Date Time Temp Pulse Resp B/P (MAP) Pulse Ox O2 Delivery O2 Flow Rate FiO2 09/30/20 07:00 97.9 78 16 118/64 (82) 93 Room Air 97.9 I & 0 Intake and Output 09/30/20 07:00 Intake Total 600 ml Balance 600 ml Intake Oral 600 ml # Voids 2 # Bowel Movements 1 PHYSICAL EXAM Physical Exam GENERAL: no acute distress. HEENT: Normocephalic, atraumatic, anicteric., OM moist NECK: Supple, no JVD. LUNGS: Clear bilaterally. HEART: S1, S2. No gallops or murmurs. ABDOMEN: Soft, nontender, nondistended. Bowel sounds present. EXTREMITIES: No edema, no cyanosis. Left perirectal wound present NEUROLOGIC: Alert and oriented x 3, grossly nonfocal. PSYCHIATRIC: Cooperative, appropriate mood and affect. No dolan, no cva or sp tenderness DIAGNOSIS/ASSESSMENT Assessment & Plan MARVEL - ATN - per pt he has never been told about Dx of CKD, he has labs done Q 6 month with PCP- Dr. Gregg Maharaj and Medication Aid Dr. Thomas @ Creat 1.2 09/29 Takes Ibuprofen approx 3/week for chronic shoulder pain , advised against NSAID's Supportive care, avoid nephrotoxins , Urinary retention POA - CT scan Mild bilateral pelviectasis. No overt hydronephrosis. No radiopaque stones. Bladder Moderately distended. resolved, currently reports good uop Sepsis/ Gram-positive diplococci bacteremia Acute left buttock abscess Hyponatremia- no recent labs DM uncontrolled CHF s/p AICD placement CAD BPH Will sign off COMMENT/RELEVANT DATA Meds Current Medications Medications (Trade) Dose Ordered Sig/Mendez Start Time Stop Time Status Last Admin Dose Admin Acetaminophen (Tylenol) 650 mg PRN Q6HRS PRN 09/25/20 20:45 09/25/20 21:38 650 MG Acetaminophen/ Hydrocodone Bitart (Lortab 5/325) 2 tab PRN Q4HRS PRN 09/27/20 10:30 Aspirin (Ecotrin) 81 mg DAILY 09/26/20 09:00 09/30/20 08:31 81 MG Atorvastatin Calcium (Lipitor) 20 mg HS 09/25/20 21:00 09/29/20 20:55 20 MG Bupivacaine HCl/ Epinephrine Bitart (Sensorcain-Epi 0.5% Kit) 30 ml STK-MED ONCE 09/27/20 07:11 09/27/20 07:11 DC Clopidogrel Bisulfate (Plavix) 75 mg DAILY 09/26/20 09:00 09/26/20 09:33 DC Daptomycin 530 mg/ Sodium Chloride 50 ml @ 100 mls/hr Q24H 09/28/20 12:00 09/29/20 13:07 100 MLS/HR Dexamethasone Sodium Phosphate (Decadron) 4 mg STK-MED ONCE 09/27/20 09:31 09/27/20 09:31 DC Dextrose (Dextrose 50%-Water Syringe) 12.5 gm PRN Q15MIN PRN 09/26/20 09:30 Fentanyl Citrate (Fentanyl 2ml Vial) 100 mcg STK-MED ONCE 09/27/20 09:31 09/27/20 09:31 DC Furosemide (Lasix) 40 mg DAILY 09/26/20 09:00 09/26/20 09:34 DC Glipizide (Glucotrol) 5 mg BIDBFRMEAL 09/29/20 16:30 09/30/20 08:31 5 MG Hydromorphone HCl (Dilaudid) 0.5 mg PRN Q10MIN PRN 09/27/20 07:30 09/28/20 07:29 DC Info (CONTRAST GIVEN -- Rx MONITORING) 1 each PRN DAILY PRN 09/25/20 14:30 09/27/20 14:29 DC Insulin Glargine (Lantus Syringe) 10 unit 1X ONCE 09/29/20 09:00 09/29/20 09:01 DC 09/29/20 08:31 10 UNIT Insulin Human Lispro (HumaLOG) 4 units 1X ONCE 09/27/20 23:00 09/27/20 23:01 DC 09/27/20 22:38 4 UNITS Iohexol (Omnipaque 300 Mg/ml) 60 ml 1X ONCE 09/25/20 14:30 09/25/20 14:31 DC 09/25/20 14:50 60 ML Ketorolac Tromethamine (Toradol 30mg Vial) 30 mg STK-MED ONCE 09/27/20 09:31 09/27/20 09:31 DC Lactobacillus Rhamnosus (Culturelle) 1 cap BID 09/27/20 21:00 09/30/20 08:31 1 CAP Lidocaine HCl (Lidocaine Pf 2% Vial) 5 ml STK-MED ONCE 09/27/20 09:31 09/27/20 09:31 DC Linezolid (Zyvox) 600 mg BID 09/26/20 11:00 09/28/20 09:57 DC 09/28/20 08:15 600 MG Loperamide HCl (Imodium) 2 mg 1X PRN PRN 09/29/20 21:30 Metformin HCl (Glucophage Xr) 2,000 mg DAILYWBKFT 09/26/20 08:00 09/26/20 09:34 DC Metformin HCl (Glucophage) 1,000 mg BIDWMEALS 09/29/20 12:00 09/30/20 08:31 1,000 MG Metronidazole (Flagyl) 500 mg TID 09/30/20 09:00 09/30/20 08:31 500 MG Mexiletine HCl (Mexitil) 200 mg TID 09/25/20 21:00 09/30/20 08:31 200 MG Morphine Sulfate (Morphine Sulfate) 1 mg PRN Q10MIN PRN 09/27/20 07:30 09/28/20 07:29 DC Multivitamins (Thera M Plus) 1 tab DAILY 09/29/20 14:00 09/30/20 08:31 1 TAB Ondansetron HCl (Zofran) 4 mg STK-MED ONCE 09/27/20 09:31 09/27/20 09:31 DC Piperacillin Sod/ Tazobactam Sod 3.375 gm/Sodium Chloride 50 ml @ 100 mls/hr Q6HRS 09/26/20 12:00 09/30/20 05:45 100 MLS/HR Potassium Chloride (Klor-Con) 20 meq DAILY 09/26/20 09:00 09/26/20 09:34 DC Prochlorperazine Edisylate (Compazine) 5 mg PACU PRN PRN 09/27/20 07:30 09/28/20 07:29 DC Propofol (Diprivan) 200 mg STK-MED ONCE 09/27/20 09:31 09/27/20 09:31 DC Ringer's Solution 1,000 ml @ 30 mls/hr Q24H 09/27/20 07:30 09/27/20 19:29 DC Sacubitril/ Valsartan (Entresto 49 Mg-51 Mg) 1 tab HS 09/25/20 21:00 09/29/20 20:56 1 TAB Sevoflurane (Ultane) 15 ml STK-MED ONCE 09/27/20 09:31 09/27/20 09:31 DC Sodium Chloride 1,000 ml @ 1,000 mls/hr Q1H 09/25/20 13:45 09/25/20 14:44 DC 09/25/20 14:18 1,000 MLS/HR Spironolactone (Aldactone) 25 mg DAILY 09/26/20 09:00 09/26/20 09:34 DC Vancomycin HCl (Vanco Per Pharmacy) 1 each PRN DAILY PRN 09/25/20 15:00 09/26/20 10:13 DC 09/25/20 19:52 1 EACH Vancomycin HCl (Vancomycin Trough Level) 1 each 1X ONCE 09/27/20 06:30 09/27/20 06:31 Cancel Vancomycin HCl 1.25 gm/Sodium Chloride 250 ml @ 167 mls/hr Q18H 09/26/20 13:00 09/26/20 10:11 DC Vancomycin HCl 1.5 gm/Sodium Chloride 500 ml @ 250 mls/hr 1X ONCE 09/25/20 17:30 09/25/20 19:29 DC 09/25/20 19:14 250 MLS/HR Lab Laboratory Tests Test 09/29/20 11:51 09/29/20 16:42 09/29/20 18:57 09/30/20 07:50 Glucose (Fingerstick) 194 mg/dL (70-99) 148 mg/dL (70-99) 209 mg/dL (70-99) 162 mg/dL (70-99) Results All relevant outside records, renal labs, imaging studies, telemetry/EKG's were reviewed. Justicifation of Admission Dx: Justifications for Admission: Justification of Admission Dx: Yes KELLIE HINDS MD Sep 30, 2020 10:48
--- NOTE | 2020-09-30 10:59 | PDOC ---
Infectious Disease Note Subjective: Subjective Patient feels better has loose bm Denies fever, nausea, vomiting, shortness of breath, abdominal pain, rash Otherwise as above Vital Signs: Vital Signs Vital Signs Date Time Temp Pulse Resp B/P (MAP) Pulse Ox O2 Delivery O2 Flow Rate FiO2 09/30/20 07:00 97.9 78 16 118/64 (82) 93 Room Air 97.9 Physical Exam: PHYSICAL EXAM GENERAL: Alert, oriented x 3 male lying in bed comfortably, in no acute distress. HEENT: Normocephalic, atraumatic, anicteric. NECK: Supple, no JVD. LUNGS: Clear bilaterally. HEART: S1, S2. No gallops or murmurs. ABDOMEN: Soft, nontender, nondistended. Bowel sounds present. EXTREMITIES: No edema, no cyanosis. Left perirectal wound present, mild surrounding redness, tenderness, induration. Improving NEUROLOGIC: Alert and oriented x 3, grossly nonfocal. PSYCHIATRIC: Cooperative, appropriate mood and affect. Medications: Inpatient Meds: Current Medications Medications (Trade) Dose Ordered Sig/Mendez Start Time Stop Time Status Last Admin Dose Admin Acetaminophen (Tylenol) 650 mg PRN Q6HRS PRN 09/25/20 20:45 09/25/20 21:38 650 MG Acetaminophen/ Hydrocodone Bitart (Lortab 5/325) 2 tab PRN Q4HRS PRN 09/27/20 10:30 Aspirin (Ecotrin) 81 mg DAILY 09/26/20 09:00 09/30/20 08:31 81 MG Atorvastatin Calcium (Lipitor) 20 mg HS 09/25/20 21:00 09/29/20 20:55 20 MG Bupivacaine HCl/ Epinephrine Bitart (Sensorcain-Epi 0.5% Kit) 30 ml STK-MED ONCE 09/27/20 07:11 09/27/20 07:11 DC Clopidogrel Bisulfate (Plavix) 75 mg DAILY 09/26/20 09:00 09/26/20 09:33 DC Daptomycin 530 mg/ Sodium Chloride 50 ml @ 100 mls/hr Q24H 09/28/20 12:00 09/29/20 13:07 100 MLS/HR Dexamethasone Sodium Phosphate (Decadron) 4 mg STK-MED ONCE 09/27/20 09:31 09/27/20 09:31 DC Dextrose (Dextrose 50%-Water Syringe) 12.5 gm PRN Q15MIN PRN 09/26/20 09:30 Fentanyl Citrate (Fentanyl 2ml Vial) 100 mcg STK-MED ONCE 09/27/20 09:31 09/27/20 09:31 DC Furosemide (Lasix) 40 mg DAILY 09/26/20 09:00 09/26/20 09:34 DC Glipizide (Glucotrol) 5 mg BIDBFRMEAL 09/29/20 16:30 09/30/20 08:31 5 MG Hydromorphone HCl (Dilaudid) 0.5 mg PRN Q10MIN PRN 09/27/20 07:30 09/28/20 07:29 DC Info (CONTRAST GIVEN -- Rx MONITORING) 1 each PRN DAILY PRN 09/25/20 14:30 09/27/20 14:29 DC Insulin Glargine (Lantus Syringe) 10 unit 1X ONCE 09/29/20 09:00 09/29/20 09:01 DC 09/29/20 08:31 10 UNIT Insulin Human Lispro (HumaLOG) 4 units 1X ONCE 09/27/20 23:00 09/27/20 23:01 DC 09/27/20 22:38 4 UNITS Iohexol (Omnipaque 300 Mg/ml) 60 ml 1X ONCE 09/25/20 14:30 09/25/20 14:31 DC 09/25/20 14:50 60 ML Ketorolac Tromethamine (Toradol 30mg Vial) 30 mg STK-MED ONCE 09/27/20 09:31 09/27/20 09:31 DC Lactobacillus Rhamnosus (Culturelle) 1 cap BID 09/27/20 21:00 09/30/20 08:31 1 CAP Lidocaine HCl (Lidocaine Pf 2% Vial) 5 ml STK-MED ONCE 09/27/20 09:31 09/27/20 09:31 DC Linezolid (Zyvox) 600 mg BID 09/26/20 11:00 09/28/20 09:57 DC 09/28/20 08:15 600 MG Loperamide HCl (Imodium) 2 mg 1X PRN PRN 09/29/20 21:30 Metformin HCl (Glucophage Xr) 2,000 mg DAILYWBKFT 09/26/20 08:00 09/26/20 09:34 DC Metformin HCl (Glucophage) 1,000 mg BIDWMEALS 09/29/20 12:00 09/30/20 08:31 1,000 MG Metronidazole (Flagyl) 500 mg TID 09/30/20 09:00 09/30/20 08:31 500 MG Mexiletine HCl (Mexitil) 200 mg TID 09/25/20 21:00 09/30/20 08:31 200 MG Morphine Sulfate (Morphine Sulfate) 1 mg PRN Q10MIN PRN 09/27/20 07:30 09/28/20 07:29 DC Multivitamins (Thera M Plus) 1 tab DAILY 09/29/20 14:00 09/30/20 08:31 1 TAB Ondansetron HCl (Zofran) 4 mg STK-MED ONCE 09/27/20 09:31 09/27/20 09:31 DC Piperacillin Sod/ Tazobactam Sod 3.375 gm/Sodium Chloride 50 ml @ 100 mls/hr Q6HRS 09/26/20 12:00 09/30/20 05:45 100 MLS/HR Potassium Chloride (Klor-Con) 20 meq DAILY 09/26/20 09:00 09/26/20 09:34 DC Prochlorperazine Edisylate (Compazine) 5 mg PACU PRN PRN 09/27/20 07:30 09/28/20 07:29 DC Propofol (Diprivan) 200 mg STK-MED ONCE 09/27/20 09:31 09/27/20 09:31 DC Ringer's Solution 1,000 ml @ 30 mls/hr Q24H 09/27/20 07:30 09/27/20 19:29 DC Sacubitril/ Valsartan (Entresto 49 Mg-51 Mg) 1 tab HS 09/25/20 21:00 09/29/20 20:56 1 TAB Sevoflurane (Ultane) 15 ml STK-MED ONCE 09/27/20 09:31 09/27/20 09:31 DC Sodium Chloride 1,000 ml @ 1,000 mls/hr Q1H 09/25/20 13:45 09/25/20 14:44 DC 09/25/20 14:18 1,000 MLS/HR Spironolactone (Aldactone) 25 mg DAILY 09/26/20 09:00 09/26/20 09:34 DC Vancomycin HCl (Vanco Per Pharmacy) 1 each PRN DAILY PRN 09/25/20 15:00 09/26/20 10:13 DC 09/25/20 19:52 1 EACH Vancomycin HCl (Vancomycin Trough Level) 1 each 1X ONCE 09/27/20 06:30 09/27/20 06:31 Cancel Vancomycin HCl 1.25 gm/Sodium Chloride 250 ml @ 167 mls/hr Q18H 09/26/20 13:00 09/26/20 10:11 DC Vancomycin HCl 1.5 gm/Sodium Chloride 500 ml @ 250 mls/hr 1X ONCE 09/25/20 17:30 09/25/20 19:29 DC 09/25/20 19:14 250 MLS/HR Labs: Lab Laboratory Tests Test 09/29/20 11:51 09/29/20 16:42 09/29/20 18:57 09/30/20 07:50 Glucose (Fingerstick) 194 mg/dL (70-99) 148 mg/dL (70-99) 209 mg/dL (70-99) 162 mg/dL (70-99) Micro RUN DATE: 09/28/20 [facility] LAB *LIVE* PAGE 1 RUN TIME: 0848 Specimen Inquiry - PATIENT: RADHA CRAFT Kristel ACCT: [id number] LOC: [address] [address] U: [id number] AGE/SX: 65/M ROOM: 440 REG : 09/25/[address]: CLARITA TORRES III, DO : 1955 BED: 1 DIS: STATUS: ADM IN TLOC: SPEC #: [id number] ANALILIA: 09/25/20 STATUS: COMP REQ #: [id number] RECD: 09/25/[address]: YURI LUGO MD SOURCE: BLOOD ENTR: 09/25/20-[address]: CLARITA TORRES III, DO SPDESC: AMNA LUGO MD, VENU S MD SIMMONS, TERRY A MD ORDERED: BCULT ----- ------- Procedure Result BLOOD CULTURE Final GRAM POSITIVE DIPLOCOCCI SEEN IN 1 OF 4 BOTTLES, 2 SETS COLLECTED. CALLED TO Daren/MAURICIO QUINTANILLA AT 0806 09/27/20 BY DEE. CULTURE SENT TO [facility] FOR FURTHER WORKUP. AMMENDED REPORT: SECOND BOTTLE OF THIS SET NOW HAS GRAM POSITIVE COCCI, 2 OF 4 BOTTLES, TWO SETS DRAWN. ONE OF TWO SETS POSITIVE. CALLED TO RONAK HSIEH RN ON 4N AT 8:45 ON 09/28/20 DW MT * This is a corrected result. * A prior result that was reported as final has been changed. Objective: Assessment: Lt perirectal abscess s/p I and D on Sep 27 cult Staph aureus Leukocytosis. Fever. Gram-positive cocci bacteremia not diplococci in blood culture 2 out of 4 bottle s present on admission(corrected report per microbiology) Enterococcus casseliflavus and STAPHYLOCOCCUS EPIDERMIDIS,source Perirectal abscess Urinary retention from benign prostatic hypertrophy. Diabetes mellitus, poorly controlled. Acute kidney injury. Diarrhea Plan: Plan of Care Continue Zosyn Cont daptomycin f/u c diff pcr called micro, suscep still pending Follow up labs Follow-up repeat blood cultures September 29 Wound care as directed Hopefully will be able to dc home tomorrow Discussed with RN. YURI LUGO MD Sep 30, 2020 10:59
[2020-09-30 11:00] VITALS: BP 132/64
[2020-09-30] MEDS: DAPTOmycin (GENERIC) IVPB 530 MG in IV NORMAL SALINE 50ML 50 ML IV SCH (13:16)
[2020-09-30 15:00] VITALS: BP 139/64
[2020-09-30 19:15] VITALS: BP 125/65
[2020-09-30] MEDS: ATORVASTATIN CALCIUM 20 MG TABLET PO SCH (21:02)
[2020-09-30] MEDS: SACUBITRIL/VALSARTAN 49/51MG TABLET. PO SCH (21:02)
[2020-09-30 23:00] VITALS: BP 134/68
[2020-10-01 03:00] VITALS: BP 130/63
[2020-10-01] MEDS: PIPERACILLIN/TAZOBACTAM 3.375 GM in IV NORMAL SALINE 50ML 50 ML IV SCH ×2 (05:47→12:45)
[2020-10-01 07:00] VITALS: BP 128/68
[2020-10-01] MEDS: INSULIN LISPRO 300 UNITS/3 ML VIAL. SQ SCH ×2 (07:42→11:35)
[2020-10-01 08:08] LABS: BASO # 0.1 x10^3/uL (0.0-0.2); BASO % 1 % (0-3); EOS # 0.2 x10^3/uL (0.0-0.7); EOS % 3 % (0-3); HEMATOCRIT 35.1 % (39.0-53.0); HEMOGLOBIN 11.7 g/dL (13.0-17.5); LYMPH # 1.1 x10^3/uL (1.0-4.8); LYMPH % 15 % (24-48); MEAN CORPUSCULAR HEMOGLOBIN 28 pg (25-35); MEAN CORPUSCULAR HGB CONC 33 g/dL (31-37); MEAN CORPUSCULAR VOLUME 84 fL (79-100); MONO # 0.7 x10^3/uL (0.0-1.1); MONO % 8 % (0-9); NEUT # 5.7 x10^3/uL (1.8-7.7); NEUT % 73 % (31-73); PLATELET COUNT 312 x10^3/uL (140-400); RED BLOOD COUNT 4.17 x10^6/uL (4.30-5.70); WHITE BLOOD COUNT 7.8 x10^3/uL (4.0-11.0)
[2020-10-01] MEDS: MULTIVITAMIN with MINERAL TABLET. PO SCH (08:14)
[2020-10-01] MEDS: glipiZIDE 5 MG TABLET PO SCH (08:15)
[2020-10-01] MEDS: LACTOBACILLUS RHAMNOSUS GG 1 CAPSULE. PO SCH (08:15)
[2020-10-01] MEDS: metFORMIN 500 MG TABLET PO SCH (08:15)
[2020-10-01] MEDS: metroNIDAZOLE 500 MG TABLET PO SCH (08:15)
[2020-10-01] MEDS: MEXILETINE HCL 200 MG CAPSULE PO SCH ×2 (08:15→14:27)
[2020-10-01] MEDS: ASPIRIN ENTERIC COATED 81 MG TABLET.DR. PO SCH (08:15)
[2020-10-01 08:22] LABS: CALCIUM 8.6 mg/dL (8.5-10.1); GFR 74.5; POTASSIUM 3.9 mmol/L (3.5-5.1)
--- NOTE | 2020-10-01 08:23 | PDOC ---
Infectious Disease Note Subjective: Subjective Patient without complaints has loose bm but improved with Imodium Eager for discharge home today Vital Signs: Vital Signs Vital Signs Date Time Temp Pulse Resp B/P (MAP) Pulse Ox O2 Delivery O2 Flow Rate FiO2 10/01/20 07:10 Room Air 10/01/20 07:00 98.4 84 18 128/68 (88) 98 98.4 Physical Exam: PHYSICAL EXAM GENERAL: Alert, oriented x 3 male lying in bed comfortably, in no acute distress. HEENT: Normocephalic, atraumatic, anicteric. NECK: Supple, no JVD. LUNGS: Clear bilaterally. HEART: S1, S2. No gallops or murmurs. ABDOMEN: Soft, nontender, nondistended. Bowel sounds present. EXTREMITIES: No edema, no cyanosis. Left perirectal wound present, mild surrounding redness, tenderness, induration. Improving NEUROLOGIC: Alert and oriented x 3, grossly nonfocal. PSYCHIATRIC: Cooperative, appropriate mood and affect. Medications: Inpatient Meds: Current Medications Medications (Trade) Dose Ordered Sig/Mendez Start Time Stop Time Status Last Admin Dose Admin Acetaminophen (Tylenol) 650 mg PRN Q6HRS PRN 09/25/20 20:45 09/25/20 21:38 650 MG Acetaminophen/ Hydrocodone Bitart (Lortab 5/325) 2 tab PRN Q4HRS PRN 09/27/20 10:30 Aspirin (Ecotrin) 81 mg DAILY 09/26/20 09:00 10/01/20 08:15 81 MG Atorvastatin Calcium (Lipitor) 20 mg HS 09/25/20 21:00 09/30/20 21:02 20 MG Bupivacaine HCl/ Epinephrine Bitart (Sensorcain-Epi 0.5% Kit) 30 ml STK-MED ONCE 09/27/20 07:11 09/27/20 07:11 DC Clopidogrel Bisulfate (Plavix) 75 mg DAILY 09/26/20 09:00 09/26/20 09:33 DC Daptomycin 530 mg/ Sodium Chloride 50 ml @ 100 mls/hr Q24H 09/28/20 12:00 09/30/20 13:16 100 MLS/HR Dexamethasone Sodium Phosphate (Decadron) 4 mg STK-MED ONCE 09/27/20 09:31 09/27/20 09:31 DC Dextrose (Dextrose 50%-Water Syringe) 12.5 gm PRN Q15MIN PRN 09/26/20 09:30 Fentanyl Citrate (Fentanyl 2ml Vial) 100 mcg STK-MED ONCE 09/27/20 09:31 09/27/20 09:31 DC Furosemide (Lasix) 40 mg DAILY 09/26/20 09:00 09/26/20 09:34 DC Glipizide (Glucotrol) 5 mg BIDBFRMEAL 09/29/20 16:30 10/01/20 08:15 5 MG Hydromorphone HCl (Dilaudid) 0.5 mg PRN Q10MIN PRN 09/27/20 07:30 09/28/20 07:29 DC Info (CONTRAST GIVEN -- Rx MONITORING) 1 each PRN DAILY PRN 09/25/20 14:30 09/27/20 14:29 DC Insulin Glargine (Lantus Syringe) 10 unit 1X ONCE 09/29/20 09:00 09/29/20 09:01 DC 09/29/20 08:31 10 UNIT Insulin Human Lispro (HumaLOG) 4 units 1X ONCE 09/27/20 23:00 09/27/20 23:01 DC 09/27/20 22:38 4 UNITS Iohexol (Omnipaque 300 Mg/ml) 60 ml 1X ONCE 09/25/20 14:30 09/25/20 14:31 DC 09/25/20 14:50 60 ML Ketorolac Tromethamine (Toradol 30mg Vial) 30 mg STK-MED ONCE 09/27/20 09:31 09/27/20 09:31 DC Lactobacillus Rhamnosus (Culturelle) 1 cap BID 09/27/20 21:00 10/01/20 08:15 1 CAP Lidocaine HCl (Lidocaine Pf 2% Vial) 5 ml STK-MED ONCE 09/27/20 09:31 09/27/20 09:31 DC Linezolid (Zyvox) 600 mg BID 09/26/20 11:00 09/28/20 09:57 DC 09/28/20 08:15 600 MG Loperamide HCl (Imodium) 2 mg 1X PRN PRN 09/29/20 21:30 09/30/20 13:20 2 MG Metformin HCl (Glucophage Xr) 2,000 mg DAILYWBKFT 09/26/20 08:00 09/26/20 09:34 DC Metformin HCl (Glucophage) 1,000 mg BIDWMEALS 09/29/20 12:00 10/01/20 08:15 1,000 MG Metronidazole (Flagyl) 500 mg TID 09/30/20 09:00 10/01/20 08:15 500 MG Mexiletine HCl (Mexitil) 200 mg TID 09/25/20 21:00 10/01/20 08:15 200 MG Morphine Sulfate (Morphine Sulfate) 1 mg PRN Q10MIN PRN 09/27/20 07:30 09/28/20 07:29 DC Multivitamins (Thera M Plus) 1 tab DAILY 09/29/20 14:00 10/01/20 08:14 1 TAB Ondansetron HCl (Zofran) 4 mg STK-MED ONCE 09/27/20 09:31 09/27/20 09:31 DC Piperacillin Sod/ Tazobactam Sod 3.375 gm/Sodium Chloride 50 ml @ 100 mls/hr Q6HRS 09/26/20 12:00 10/01/20 05:47 100 MLS/HR Potassium Chloride (Klor-Con) 20 meq DAILY 09/26/20 09:00 09/26/20 09:34 DC Prochlorperazine Edisylate (Compazine) 5 mg PACU PRN PRN 09/27/20 07:30 09/28/20 07:29 DC Propofol (Diprivan) 200 mg STK-MED ONCE 09/27/20 09:31 09/27/20 09:31 DC Ringer's Solution 1,000 ml @ 30 mls/hr Q24H 09/27/20 07:30 09/27/20 19:29 DC Sacubitril/ Valsartan (Entresto 49 Mg-51 Mg) 1 tab HS 09/25/20 21:00 09/30/20 21:02 1 TAB Sevoflurane (Ultane) 15 ml STK-MED ONCE 09/27/20 09:31 09/27/20 09:31 DC Sodium Chloride 1,000 ml @ 1,000 mls/hr Q1H 09/25/20 13:45 09/25/20 14:44 DC 09/25/20 14:18 1,000 MLS/HR Spironolactone (Aldactone) 25 mg DAILY 09/26/20 09:00 09/26/20 09:34 DC Vancomycin HCl (Vanco Per Pharmacy) 1 each PRN DAILY PRN 09/25/20 15:00 09/26/20 10:13 DC 09/25/20 19:52 1 EACH Vancomycin HCl (Vancomycin Trough Level) 1 each 1X ONCE 09/27/20 06:30 09/27/20 06:31 Cancel Vancomycin HCl 1.25 gm/Sodium Chloride 250 ml @ 167 mls/hr Q18H 09/26/20 13:00 09/26/20 10:11 DC Vancomycin HCl 1.5 gm/Sodium Chloride 500 ml @ 250 mls/hr 1X ONCE 09/25/20 17:30 09/25/20 19:29 DC 09/25/20 19:14 250 MLS/HR Labs: Lab Laboratory Tests Test 09/30/20 11:46 09/30/20 16:45 09/30/20 21:12 10/01/20 07:05 Glucose (Fingerstick) 158 mg/dL (70-99) 159 mg/dL (70-99) 168 mg/dL (70-99) White Blood Count 7.8 x10^3/uL (4.0-11.0) Red Blood Count 4.17 x10^6/uL (4.30-5.70) Hemoglobin 11.7 g/dL (13.0-17.5) Hematocrit 35.1 % (39.0-53.0) Mean Corpuscular Volume 84 fL (79-100) Mean Corpuscular Hemoglobin 28 pg (25-35) Mean Corpuscular Hemoglobin Concent 33 g/dL (31-37) Red Cell Distribution Width 15.0 % (11.5-14.5) Platelet Count 312 x10^3/uL (140-400) Neutrophils (%) (Auto) 73 % (31-73) Lymphocytes (%) (Auto) 15 % (24-48) Monocytes (%) (Auto) 8 % (0-9) Eosinophils (%) (Auto) 3 % (0-3) Basophils (%) (Auto) 1 % (0-3) Neutrophils # (Auto) 5.7 x10^3/uL (1.8-7.7) Lymphocytes # (Auto) 1.1 x10^3/uL (1.0-4.8) Monocytes # (Auto) 0.7 x10^3/uL (0.0-1.1) Eosinophils # (Auto) 0.2 x10^3/uL (0.0-0.7) Basophils # (Auto) 0.1 x10^3/uL (0.0-0.2) Test 10/01/20 07:32 Glucose (Fingerstick) 138 mg/dL (70-99) Micro RUN DATE: 09/28/20 [facility] *LIVE* PAGE 1 RUN TIME: 847 Specimen Inquiry PATIENT: RADHA CRAFT ACCT: [id number] LOC: [address] [place] [address] U: [id number] AGE/SX: 65/M ROOM: 440 RE09/25/[address]: CLARITA TORRES III DO : 1955 BED: 1 DIS: STATUS: ADM IN TLOC: -------- ---- SPEC #: [id number] ANALILIA: 09/25/20 STATUS: COMP REQ #: [id number] RECD: 09/25/[address] [facility] [address]: YURI LUGO MD SOURCE: BLOOD ENTR: 09/25/[address]: CLARITA [facility]ORRES III, [facility] MD, VENU S MD SIMMONS, TERRY A MD ORDERED: BCULT Procedure Result ------- ----- BLOOD CULTURE Final GRAM POSITIVE DIPLOCOCCI SEEN IN 1 OF 4 BOTTLES, 2 SETS COLLECTED. CALLED TO N/MAURICIO QUINTANILLA AT 0806 09/27/20 BY DEE. CULTURE SENT TO [facility] FOR FURTHER WORKUP. AMMENDED REPORT: SECOND BOTTLE OF THIS SET NOW HAS GRAM POSITIVE COCCI, 2 OF 4 BOTTLES, TWO SETS DRAWN. ONE OF TWO SETS POSITIVE. CALLED TO RONAK HSIEH RN ON 4N AT 8:45 ON 09/28/20 [facility] * This is a corrected result. * A prior result that was reported as final has been changed. Objective: Assessment: Lt perirectal abscess s/p I and D on Sep 27 cult Staph aureus Leukocytosis. Resolved Fever. Resolved Gram-positive cocci bacteremia not diplococci in blood culture 2 out of 4 bottles present on admission(corrected report per microbiology) -Enterococcus casseliflavus ampicillin sensitive source Perirectal abscess -Staph epidermidis likely contaminant Urinary retention from benign prostatic hypertrophy. Diabetes mellitus, poorly controlled. Acute kidney injury. Diarrhea Plan: Plan of Care Patient was started on Flagyl by primary care Does not need dual treatment as patient is already on Zosyn Dose Dapto before discharge today Discharge home on p.o. linezolid and Augmentin Social service to assist with discharge antibiotic scripts Continue local wound care as directed Maintain hygiene Probiotics Follow-up in ID clinic if needed Discussed with RN. YURI LUGO MD Oct 01, 2020 08:23
--- NOTE | 2020-10-01 09:49 | NUR ---
[facility] following. Discussed with RN, pt from home, room air, ada diet. Plan is to discharge on po abx - RN calling Zyvox into pt pharmacy to determine cost with insurance, if expensive JODY will provide a goodrx coupon. Pt ready for discharge home today. [facility]ODY will continue to follow. Addendum: 10/01/20 at 1039 by CELINE VERA Goodrx coupon provided to RN for pt's preferred pharmacy. No further JODY needs. Addendum: 10/01/20 at 1338 by CELINE VERA RN contacted [facility] to advise pt needs home health for wound care, as wound clinic can only see him once a week. RN reported pt has no preference of provider and is leaving. [facility]ODY sent referral to [facility]. Pt accepted with [facility]. RN notified.
--- NOTE | 2020-10-01 10:26 | NUR ---
[facility] contacted re: cost of Zyvox, stated they would not be able to run it until they had the Rx. Pt. stated he he could afford the potential amount with Good [facility].
[2020-10-01 11:00] VITALS: BP 143/72
[2020-10-01] MEDS: DAPTOmycin (GENERIC) IVPB 530 MG in IV NORMAL SALINE 50ML 50 ML IV SCH (11:32)
[2020-10-01] MEDS ORDERED: AMOX1TAB61 PO (11:44)
[2020-10-01] MEDS ORDERED: HYDR-2761 PO ×2 (11:44→17:20)
[2020-10-01] MEDS ORDERED: LINE600T12 PO (11:44)
--- NOTE | 2020-10-01 11:46 | SNU/HH DC ---
DISCHARGE WITH HOME HEALTH DISCHARGE INFORMATION: Discharge Date: Oct 01, 2020 Final Diagnosis: Problems Medical Problems: (1) Abscess and cellulitis of gluteal region Status: Acute (2) Urinary retention Status: Acute Condition on Discharge: Stable CODE STATUS: Code Status: Full HOME HEALTH: Face to Face: I certify this patient is under my care and that I, or a nurse practitioner or physician's licensed investment sales assistant working with me, had a face to face encounter that meets the physician face to face encounter requirements with this patient on 10/01/20. Medical Complications: DM, Other (Asbscess) Long Term For: Assess/Skilled Observatio, director of clinical education For Eval/Treatment: Yes Physical Therapy For: Evalulation/Treatment Occupational Therapy For: Evaluation/Treatment Pt Meets Homebound Status: Unsteady balance w/ amb, POST DISCHARGE ORDERS: Activity Instructions for Disc: Resume previous activity Weight Bearing Status after Di: Full weight bearing DIET AFTER DISCHARGE: ADA Wound/Incision Care: Change dressing, Reinforce dressing PRN CHECKS AFTER DISCHARGE: Checks after discharge: Check blood press - daily, Check blood sugar, ac/hs, Check your Temp as needed CERTIFICATION STATEMENT: Certification Statement: Certification Statement: Based on the above finding, I certify that this patient is confined to the home and needs intermittent long-term care, physical therapy and/or speech therapy, or continues to need occupational therapy.~ This patient is under my care, and I have initiated the establishment of the plan of care.~ This patient will be followed by myself or a community physician who will periodically review the plan of care. Home Meds Active Scripts Amoxicillin/Potassium Clav (AUGMENTIN 875-125 TABLET) 1 Each Tablet, 1 TAB PO BID for Abscess for 10 Days, #20 TAB 0 Refills Prov:LULÚ GASPAR MD 10/01/20 Linezolid (ZYVOX) 600 Mg Tablet, 600 MG PO BID for MRSA abscess for 10 Days, #20 TAB Prov:LULÚ GASPAR MD 10/01/20 Hydrocodone Bit/Acetaminophen (HYDROCODONE-APAP 5-325 ) 1 Tab Tablet, 1 TAB PO PRN Q4HRS PRN for MODERATE PAIN for 6 Days, #16 TAB Prov:LULÚ GASPAR MD 10/01/20 Reported Medications Spironolactone (SPIRONOLACTONE) 25 Mg Tablet, 1 TAB PO DAILY for htn, #90 TAB 1 Refill 09/25/20 Potassium Chloride (KLOR-CON M20) 20 Meq Tab.er.prt, 1 TAB PO DAILY for K- replacement for 30 Days, #30 TAB 0 Refills 09/25/20 Mexiletine Hcl (MEXILETINE HCL) 200 Mg Capsule, 200 MG PO TID for heart arrythimias, CAP 09/25/20 Metformin Hcl (METFORMIN HCL) 1,000 Mg Tablet, 2000 MG PO DAILYWBKFT for ANTI- DIABETIC, TAB 0 Refills 09/25/20 Glipizide (GLIPIZIDE) 5 Mg Tablet, 1 TAB PO DAILY for diabetes, #90 TAB 3 Refills 09/25/20 Furosemide (FUROSEMIDE) 40 Mg Tablet, 1 TAB PO DAILY for htn, #30 TAB 5 Refills 09/25/20 Sacubitril/Valsartan (Entresto 49 mg-51 mg Tablet) 1 Each Tablet, 1 EACH PO HS for cholesterol, TAB 09/25/20 Clopidogrel Bisulfate (CLOPIDOGREL) 75 Mg Tablet, 1 TAB PO DAILY for coag, #90 TAB 1 Refill 09/25/20 Atorvastatin Calcium (ATORVASTATIN CALCIUM) 20 Mg Tablet, 20 MG PO HS PRN for cholesterol, #30 TAB 0 Refills 09/25/20 Aspirin (ASPIRIN EC) 81 Mg Tablet., 1 TAB PO DAILY for caoag, #30 TAB 3 Refills 09/25/20 LULÚ GASPAR MD Oct 01, 2020 11:46
--- NOTE | 2020-10-01 11:47 | PDOC ---
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 Abscess spontaneously ruptured. Rated his pain at 7/10 and describes as pressure-like in sensation. 09/26: No acute events overnight. Fevers of Tmax of 101.0. Pain is controlled. IV Abx. Patient's chart, labs, images were reviewed and discussed with RN 09/27: To OR for I&D of perirectal abscess 09/28: Afebrile. Pain is improved. Blood cultures 2 out of 4 positive for gram- positive cocci in pairs. He is able to have 2 BM overnight. No chest pain or shortness of breath. 09/29: Afebrile. Final cultures still pending - blood is staph warneri and wound staph aureus. Wound much better today. Has a lot of questions, all answered today. 09/30: Afebrile. Wound with MRSA. blood cultures with multiple organisms, awaiting repeat blood culture results. Pain controlled. had some diarrhea overnight, immodium helped Patient without complaints. Eager for discharge home today. Wound care needs to be performed daily. Discussed with ID that he will follow-up in ID clinic and will go home on 10 days Augmentin and Zyvox. Social work to assist with affordability. Dose of daptomycin prior to discharge today Vitals/I&O Vitals/I&O: Vital Signs Date Time Temp Pulse Resp B/P (MAP) Pulse Ox O2 Delivery O2 Flow Rate FiO2 10/01/20 11:00 97.9 73 20 143/72 (95) 97 Room Air 97.9 I & O 09/30/20 09/30/2021 15:00 23:00 07:00 Intake Total 780 ml 400 ml 100 ml Balance 780 ml 400 ml 100 ml Physical Exam Physical Exam: GENERAL: Alert, oriented x 3 male lying in bed comfortably, in no acute distress. HEENT: Normocephalic, atraumatic, anicteric. NECK: Supple, no JVD. LUNGS: Clear bilaterally. HEART: S1, S2. No gallops or murmurs. ABDOMEN: Soft, nontender, nondistended. Bowel sounds present. EXTREMITIES: No edema, no cyanosis. Left perirectal wound present, mild surrounding redness, tenderness, induration. Improving NEUROLOGIC: Alert and oriented x 3, grossly nonfocal. PSYCHIATRIC: Cooperative, appropriate mood and affect. General: Alert, Oriented X3, Cooperative Abdomen: Soft, No tenderness Extremities: No clubbing, No cyanosis Skin: Other (wound packed) Labs Labs: Laboratory Tests Test 09/30/20 16:45 09/30/20 21:12 10/01/20 07:05 10/01/20 07:32 Glucose (Fingerstick) 159 mg/dL (70-99) 168 mg/dL (70-99) 138 mg/dL (70-99) White Blood Count 7.8 x10^3/uL (4.0-11.0) Red Blood Count 4.17 x10^6/uL (4.30-5.70) Hemoglobin 11.7 g/dL (13.0-17.5) Hematocrit 35.1 % (39.0-53.0) Mean Corpuscular Volume 84 fL (79-100) Mean Corpuscular Hemoglobin 28 pg (25-35) Mean Corpuscular Hemoglobin Concent 33 g/dL (31-37) Red Cell Distribution Width 15.0 % (11.5-14.5) Platelet Count 312 x10^3/uL (140-400) Neutrophils (%) (Auto) 73 % (31-73) Lymphocytes (%) (Auto) 15 % (24-48) Monocytes (%) (Auto) 8 % (0-9) Eosinophils (%) (Auto) 3 % (0-3) Basophils (%) (Auto) 1 % (0-3) Neutrophils # (Auto) 5.7 x10^3/uL (1.8-7.7) Lymphocytes # (Auto) 1.1 x10^3/uL (1.0-4.8) Monocytes # (Auto) 0.7 x10^3/uL (0.0-1.1) Eosinophils # (Auto) 0.2 x10^3/uL (0.0-0.7) Basophils # (Auto) 0.1 x10^3/uL (0.0-0.2) Sodium Level 138 mmol/L (136-145) Potassium Level 3.9 mmol/L (3.5-5.1) Chloride Level 105 mmol/L (98-107) Carbon Dioxide Level 24 mmol/L (21-32) Anion Gap 9 (6-14) Blood Urea Nitrogen 11 mg/dL (8-26) Creatinine 1.0 mg/dL (0.7-1.3) Estimated GFR (Cockcroft-Gault) 74.5 Glucose Level 169 mg/dL (70-99) Calcium Level 8.6 mg/dL (8.5-10.1) Creatine Kinase 63 U/L (39-308) Test 10/01/20 11:35 Glucose (Fingerstick) 149 mg/dL (70-99) Assessment and Plan Assessmemt and Plan Problems Medical Problems: (1) Abscess and cellulitis of gluteal region Status: Acute (2) Urinary retention Status: Acute Comment Review of Relevant I have reviewed the following items kavin (where applicable) has been applied. Justifications for Admission Other Justification LULÚ GASPAR MD Oct 01, 2020 11:47
--- NOTE | 2020-10-01 11:49 | PDOC3 ---
Discharge Summary Visit Information Date of Admission: Sep 25, 2020 Date of Discharge: Oct 01, 2020 Admitting Diagnosis: Abscess and cellulitis of perineum Final Diagnosis Problems Medical Problems: (1) Abscess and cellulitis of gluteal region Status: Acute (2) Urinary retention Status: Acute Brief Hospital Course Allergies Allergies Coded Allergies Type Severity Reaction Last Updated Verified No Known Drug Allergies 09/25/20 No Vital Signs Vital Signs Date Time Temp Pulse Resp B/P (MAP) Pulse Ox O2 Delivery O2 Flow Rate FiO2 10/01/20 11:00 97.9 73 20 143/72 (95) 97 Room Air 97.9 Lab Results Laboratory Tests Test 09/29/20 11:51 09/29/20 16:42 09/29/20 18:57 09/30/20 04:15 Glucose (Fingerstick) 194 mg/dL (70-99) 148 mg/dL (70-99) 209 mg/dL (70-99) Clostridium difficile Toxin (PCR) Negative (NEGATIVE) Test 09/30/20 07:50 09/30/20 11:46 09/30/20 16:45 09/30/20 21:12 Glucose (Fingerstick) 162 mg/dL (70-99) 158 mg/dL (70-99) 159 mg/dL (70-99) 168 mg/dL (70-99) Test 10/01/20 07:05 10/01/20 07:32 10/01/20 11:35 White Blood Count 7.8 x10^3/uL (4.0-11.0) Red Blood Count 4.17 x10^6/uL (4.30-5.70) Hemoglobin 11.7 g/dL (13.0-17.5) Hematocrit 35.1 % (39.0-53.0) Mean Corpuscular Volume 84 fL (79-100) Mean Corpuscular Hemoglobin 28 pg (25-35) Mean Corpuscular Hemoglobin Concent 33 g/dL (31-37) Red Cell Distribution Width 15.0 % (11.5-14.5) Platelet Count 312 x10^3/uL (140-400) Neutrophils (%) (Auto) 73 % (31-73) Lymphocytes (%) (Auto) 15 % (24-48) Monocytes (%) (Auto) 8 % (0-9) Eosinophils (%) (Auto) 3 % (0-3) Basophils (%) (Auto) 1 % (0-3) Neutrophils # (Auto) 5.7 x10^3/uL (1.8-7.7) Lymphocytes # (Auto) 1.1 x10^3/uL (1.0-4.8) Monocytes # (Auto) 0.7 x10^3/uL (0.0-1.1) Eosinophils # (Auto) 0.2 x10^3/uL (0.0-0.7) Basophils # (Auto) 0.1 x10^3/uL (0.0-0.2) Sodium Level 138 mmol/L (136-145) Potassium Level 3.9 mmol/L (3.5-5.1) Chloride Level 105 mmol/L (98-107) Carbon Dioxide Level 24 mmol/L (21-32) Anion Gap 9 (6-14) Blood Urea Nitrogen 11 mg/dL (8-26) Creatinine 1.0 mg/dL (0.7-1.3) Estimated GFR (Cockcroft-Gault) 74.5 Glucose Level 169 mg/dL (70-99) Calcium Level 8.6 mg/dL (8.5-10.1) Creatine Kinase 63 U/L (39-308) Glucose (Fingerstick) 138 mg/dL (70-99) 149 mg/dL (70-99) Laboratory Tests Test 09/30/20 16:45 09/30/20 21:12 10/01/20 07:05 10/01/20 07:32 Glucose (Fingerstick) 159 mg/dL (70-99) 168 mg/dL (70-99) 138 mg/dL (70-99) White Blood Count 7.8 x10^3/uL (4.0-11.0) Red Blood Count 4.17 x10^6/uL (4.30-5.70) Hemoglobin 11.7 g/dL (13.0-17.5) Hematocrit 35.1 % (39.0-53.0) Mean Corpuscular Volume 84 fL (79-100) Mean Corpuscular Hemoglobin 28 pg (25-35) Mean Corpuscular Hemoglobin Concent 33 g/dL (31-37) Red Cell Distribution Width 15.0 % (11.5-14.5) Platelet Count 312 x10^3/uL (140-400) Neutrophils (%) (Auto) 73 % (31-73) Lymphocytes (%) (Auto) 15 % (24-48) Monocytes (%) (Auto) 8 % (0-9) Eosinophils (%) (Auto) 3 % (0-3) Basophils (%) (Auto) 1 % (0-3) Neutrophils # (Auto) 5.7 x10^3/uL (1.8-7.7) Lymphocytes # (Auto) 1.1 x10^3/uL (1.0-4.8) Monocytes # (Auto) 0.7 x10^3/uL (0.0-1.1) Eosinophils # (Auto) 0.2 x10^3/uL (0.0-0.7) Basophils # (Auto) 0.1 x10^3/uL (0.0-0.2) Sodium Level 138 mmol/L (136-145) Potassium Level 3.9 mmol/L (3.5-5.1) Chloride Level 105 mmol/L (98-107) Carbon Dioxide Level 24 mmol/L (21-32) Anion Gap 9 (6-14) Blood Urea Nitrogen 11 mg/dL (8-26) Creatinine 1.0 mg/dL (0.7-1.3) Estimated GFR (Cockcroft-Gault) 74.5 Glucose Level 169 mg/dL (70-99) Calcium Level 8.6 mg/dL (8.5-10.1) Creatine Kinase 63 U/L (39-308) Test 10/01/20 11:35 Glucose (Fingerstick) 149 mg/dL (70-99) Brief Hospital Course Mr Monge is a 65 yo M w/ PMHx CHF s/p AICD placement, DM2, CAD, BPH, CKD3 who presented to ED having problems with urinary retention, also had a boil on his right buttock. Abscess spontaneously ruptured. Rated his pain at 7/10 and describes as pressure-like in sensation. 09/26: No acute events overnight. Fevers of Tmax of 101.0. Pain is controlled. IV Abx. Patient's chart, labs, images were reviewed and discussed with RN 09/27: To OR for I&D of perirectal abscess 09/28: Afebrile. Pain is improved. Blood cultures 2 out of 4 positive for gram- positive cocci in pairs. He is able to have 2 BM overnight. No chest pain or shortness of breath. 09/29: Afebrile. Final cultures still pending - blood is staph warneri and wound staph aureus. Wound much better today. Has a lot of questions, all answered today. 09/30: Afebrile. Wound with MRSA. blood cultures with multiple organisms, awaiting repeat blood culture results. Pain controlled. had some diarrhea overnight, immodium helped Patient without complaints. Eager for discharge home today. Wound care needs to be performed daily. Discussed with ID that he will follow-up in ID clinic and will go home on 10 days Augmentin and Zyvox. Social work to assist with affordability. 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 DM uncontrolled CHF s/p AICD placement CAD BPH Greater than 30 minutes spent on d/c home with home health Discharge Information Condition at Discharge: Improved Follow Up: Weeks (1) Disposition/Orders: D/C to Home w/ HH Scheduled Amoxicillin/Potassium Clav (Augmentin 875-125 Tablet) 1 Each Tablet, 1 TAB PO BID for Abscess for 10 Days, #20 Ref 0 Prescribed by: LULÚ GASPAR MD on 10/01/20 1144 Aspirin (Aspirin Ec) 81 Mg Tablet.dr, 1 TAB PO DAILY for caoag, #30 Ref 3 (Reported) Entered as Reported by: SHAKILA GAN on 09/25/202027 Last Taken: Unknown Dose on 09/25/20 Last Action: Continued on 09/25/202031 by SHAKILA GAN Clopidogrel Bisulfate (Clopidogrel) 75 Mg Tablet, 1 TAB PO DAILY for coag, #90 Ref 1 (Reported) Entered as Reported by: SHAKILA GAN on 09/25/202027 Last Taken: Unknown Dose on 09/25/20 Last Action: Continued on 09/25/202031 by SHAKILA GAN Furosemide (Furosemide) 40 Mg Tablet, 1 TAB PO DAILY for htn, #30 Ref 5 (Reported) Entered as Reported by: SHAKILA GAN on 09/25/202027 Last Taken: Unknown Dose on 09/25/20 Last Action: Continued on 09/25/202031 by SHAKILA GAN Glipizide (Glipizide) 5 Mg Tablet, 1 TAB PO DAILY for diabetes, #90 Ref 3 (Reported) Entered as Reported by: SHAKILA GAN on 09/25/202027 Last Taken: Unknown Dose on 09/25/20 Last Action: Continued on 09/25/202031 by SHAKILA GAN Linezolid (Zyvox) 600 Mg Tablet, 600 MG PO BID for MRSA abscess for 10 Days, #20 Prescribed by: LULÚ GASPAR MD on 10/01/20 1144 Metformin Hcl (Metformin Hcl) 1,000 Mg Tablet, 2,000 MG PO DAILYWBKFT for ANTI- DIABETIC, Ref 0 (Reported) Entered as Reported by: SHAKILA GAN on 09/25/202027 Last Taken: Unknown Dose on 09/25/20 Last Action: Converted on 09/25/202031 by SHAKILA GAN Mexiletine Hcl (Mexiletine Hcl) 200 Mg Capsule, 200 MG PO TID for heart arrythimias, (Reported) Entered as Reported by: SHAKILA GAN on 09/25/202027 Last Taken: Unknown Dose on 09/25/20 Last Action: Continued on 09/25/202031 by SHAKILA GAN Potassium Chloride (Klor-Con M20) 20 Meq Tab.er.prt, 1 TAB PO DAILY for K- replacement for 30 Days, #30 Ref 0 (Reported) Entered as Reported by: SHAKILA GAN on 09/25/202027 Last Taken: Unknown Dose on 09/25/20 Last Action: Continued on 09/25/202031 by SHAKILA GAN Sacubitril/Valsartan (Entresto 49 mg-51 mg Tablet) 1 Each Tablet, 1 EACH PO HS for cholesterol, (Reported) Entered as Reported by: SHAKILA GAN on 09/25/202027 Last Taken: Unknown Dose on 09/25/20 Last Action: Continued on 09/25/202031 by SHAKILA GAN Spironolactone (Spironolactone) 25 Mg Tablet, 1 TAB PO DAILY for htn, #90 Ref 1 (Reported) Entered as Reported by: SHAKILA GAN on 09/25/202027 Last Taken: Unknown Dose on 09/25/20 Last Action: Continued on 09/25/202031 by SHAKILA GAN Scheduled PRN Atorvastatin Calcium (Atorvastatin Calcium) 20 Mg Tablet, 20 MG PO HS PRN for cholesterol, #30 Ref 0 (Reported) Entered as Reported by: SHAKILA GAN on 09/25/202027 Last Taken: Unknown Dose on 09/25/20 Last Action: Continued on 09/25/202031 by SHAKILA GAN Hydrocodone Bit/Acetaminophen (Hydrocodone-Apap 5-325 ) 1 Tab Tablet, 1 TAB PO PRN Q4HRS PRN for MODERATE PAIN for 6 Days, #16 Prescribed by: LULÚ GASPAR MD on 10/01/20 1144 Justicifation of Admission Dx: Justifications for Admission: Justification of Admission Dx: Yes LULÚ GASPAR MD Oct 01, 2020 11:49
--- NOTE | 2020-10-01 12:02 | NUR ---
IP: Pt is mrsa + from perirectal abscess. Pt to be in contact precautions until discharge.
[2020-10-01] MEDS ORDERED: INFLUENZA VAX SCREEN BY RX. MC PRN (14:15)
[2020-10-01] MEDS ORDERED: FLU VACC QS 2020-21(6MOS+)/PF 0.5 ML SYRINGE. VAX IM ONE (14:30)
[2020-10-01 15:00] VITALS: BP 144/67
--- NOTE | 2020-10-01 15:13 | NUR ---
Wound/Ostomy Care Wound Type/Assessment: WC follow up for left buttock abscess, I&D done 09/27/[address] Ibarra. Wound is red non-granulation with slough, fat, and muscle exposed. Wound pictured, measured, assessed and redressed. Treatment Recommendations/Plan: Repacked wound with hydrofera blue transfer cut intoarope, and covered with ABD and hypafix tape. Bandage covered with tegaderm and hydrocolloid to keep clean from stool. Recommend to change every other day. Education provided: WC POC and PU prevention Offloading surface/device: WC cushion ordered again Recommended Referrals/Tests: follow up in wound clinic next week Discharge Recommendations for dressings: continue as above noted until seen in wound clinic
--- NOTE | 2020-10-01 15:37 | NUR ---
Pt. discharged to home with Rx and good RX coupon. Buttock dressing changed and picturered per [facility] RNs, eliudg CDI. Pt. verbalized understanding of discharge instructions.
== END 2020-10-01 15:39 | disposition home health service (06) | DRG 853 ==
LOC: ER 12:13 → 4 NORTH 15:47
PROVIDERS: ADMIT Internal Medicine; ATTEND Internal Medicine
PROC: 0D9P0ZZ Drainage of Rectum, Open Approach (ICD-10-PCS; principal; 2020-09-27 09:30)
DX: A41.89 Other specified sepsis (principal); N17.0 Acute kidney failure with tubular necrosis; E87.1 Hypo-osmolality and hyponatremia; I13.0 Hypertensive heart and chronic kidney disease with heart failure and stage 1 through stage 4 chronic kidney disease, or unspecified chronic kidney disease; K61.1 Rectal abscess; L02.215 Cutaneous abscess of perineum; L02.31 Cutaneous abscess of buttock; L03.315 Cellulitis of perineum; L03.317 Cellulitis of buttock; E11.22 Type 2 diabetes mellitus with diabetic chronic kidney disease; E11.65 Type 2 diabetes mellitus with hyperglycemia; E78.00 Pure hypercholesterolemia, unspecified; I25.10 Atherosclerotic heart disease of native coronary artery without angina pectoris; I25.2 Old myocardial infarction; I50.9 Heart failure, unspecified; K57.30 Diverticulosis of large intestine without perforation or abscess without bleeding; N18.30 Chronic kidney disease, stage 3 unspecified; N40.1 Benign prostatic hyperplasia with lower urinary tract symptoms; R33.8 Other retention of urine; Z83.3 Family history of diabetes mellitus; Z95.810 Presence of automatic (implantable) cardiac defibrillator; E87.6 Hypokalemia; B95.62 Methicillin resistant Staphylococcus aureus infection as the cause of diseases classified elsewhere
CPT/HCPCS: 36415; 74177; 80048; 80053; 81001; 82550; 82962; 83605; 83735; 84484; 85007; 85025; 87040; 87071; 87075; 87077; 87186; 87205; 87426; 87493; 90471; 90686; 93005; 96360; 99285; J0878; J1100; J1815; J1885; J2405; J2543; J2704; J3010; J3370; J7030; J7040; Q9967; U0003; A4461; G0378